=== PATIENT | female | born 1965 | race Caucasian/White ===

== ENCOUNTER 2025-08-10 09:58 | Emergency (ER) | payer OTHER, SELFPAY ==
[2025-08-04 14:04] VITALS: BMI 22.2
[2025-08-10 10:20] VITALS: BP 100/73; PULSE 89; RESP 16; TEMP 36.3; O2SAT 97; BMI 23.7
--- NOTE | 2025-08-10 11:14 | EKG_ITS ---
[place] [id number] [place] [id number] Test Date: 2025-08-10 Pat Name: Lilli Edmonds Department: [facility] Room: Gender: Female Icd 9 Coder: YOLANDA : 1965 Requested By: Order Number: [id number] Reading MD: Carl Bartholomew Measurements Intervals [place] Rate: 77 P: 65 HI: 162 QRS: 35 QRSD: 74 T: 120 QT: 402 QTc: 454 Interpretive Statements Normal sinus rhythm Low voltage QRS Cannot rule out Anterior infarct , age undetermined Electronically Signed On 08-10-2025 18:47:20 PDT by Carl Bartholomew
[2025-08-10 11:34] LABS: Add Manual Diff / Slide Review NO; Hematocrit 45.8 % (36-46); Hemoglobin 15.6 g/dL (12.0-16.0); Lymphocytes Absolute Auto 2200 /uL (1100-4500); Mean Corpuscular HGB Conc 33.9 % (30-36); Mean Corpuscular Hemoglobin 33.3 PG (26-34); Mean Corpuscular Volume 98.0 fL (80-100); Platelet Count 373 X10^3/uL (150-400)
[2025-08-10 11:46] LABS: Alanine Aminotransferase 29 IU/L (<35); Albumin 2.5 g/dL (3.5-5.0); Albumin Globulin Ratio 0.8 (1.0-2.8); Alkaline Phosphatase 466 U/L (38-126); Blood Urea Nitrogen 18 mg/dL (7-17); Calcium 8.6 mg/dL (8.4-10.2); Carbon Dioxide 26 mmol/L (22-32); Chloride 108 mmol/L (98-107); Estimated Glomerular Filt Rate > 60 mL/min (>60); Globulin 3.1 g/dL (1.7-4.1); Glucose 104 mg/dL (70-99); HEMOLYSIS < 15 (0-50); Lipase 64 U/L (23-300); Potassium 3.4 mmol/L (3.4-5.1); Sodium 134 mmol/L (137-145); Total Protein 5.6 g/dL (6.3-8.2)
--- NOTE | 2025-08-10 13:55 | DI.US.S_ITS ---
PROCEDURE: US PARACENTESIS INDICATIONS: ascites TECHNIQUE: The indications, alternatives, benefits, risks, and complications of the procedure were explained to the patient. Written informed consent was obtained and placed in the chart. The abdomen and pelvis were examined sonographically, and an appropriate site was chosen for paracentesis. The skin was prepared and draped in the usual sterile fashion, and 1% lidocaine was infiltrated from the skin down through the peritoneal surface. A 19-gauge catheter-covered needle was then introduced into the peritoneal space, the catheter was advanced and the needle was withdrawn, and thereafter peritoneal fluid was withdrawn. The catheter was then removed and a dressing was applied. The fluid was discarded if the clinician did not order diagnostic testing of the fluid. COMPARISON: [facility], PARACENTESIS, 08/06/2025, 9:55. FINDINGS: Access site: Right lower quadrant Needle: One-Step centesis catheter with introducer needle. Fluid volume and description: 2 liters of chylous fluid. Fluid sent for diagnostic testing: None. Medications: 1% lidocaine for local anaesthesia. Complications: None. IMPRESSION: Successful ultrasound-guided paracentesis. Dictated by: Sunny King M.D. on 08/10/2025 at 17:03 Approved by: Sunny King M.D. on 08/10/2025 at 17:05
--- NOTE | 2025-08-10 13:56 | ED_ITS ---
HPI - Abdominal Pain <Joe Hale MD - Last Filed: 08/27/25 08:01> General Chief Complaint: Abdominal Pain Stated Complaint: needs fluid drain Time Seen by Provider: 08/10/25 13:42 History of Present Illness HPI narrative: This is a 59-year-old female recently hospitalized with the ascites of uncertain etiology, there was concern for malignancy with this apparently is not the case she is not known to have any liver disease. I reviewed the August [address] Costa. She was seen by him in the office today. She is reporting recurrent abdominal fluid which is uncomfortable and she is hoping to have a paracentesis. I note from the discharge summary that she had a 1600 cc paracentesis on the 06 of August. Patient is on acetazolamide to limit recurrence of abdominal ascites, this is a dose was adjusted upward by her primary care provider today. He is not having fevers nausea or vomiting. Related Data Home Medications ?Medication ?Instructions ?Recorded ?Confirmed paroxetine HCl 30 mg tablet 30 mg PO DAILY 08/04/25 trazodone 50 mg tablet 50 mg PO ONCE PM 08/04/25 Allergies Allergy/AdvReac Type Severity Reaction Status Date / Time Sulfa (Sulfonamide Allergy Severe Swelling Verified 08/04/25 10:55 Antibiotics) of Lip/Tongue/Throat Patient History <Joe Hale MD - Last Filed: 08/27/25 08:01> Social History household members: spouse alcohol intake: never Exam <Joe Hale MD - Last Filed: 08/27/25 08:01> Narrative Exam Narrative: Alert and in no distress. Vital signs are reviewed and unremarkable. Bowel sounds are normal abdomen is soft and nontender she does have palpable ascites. Initial Vital Signs Initial Vital Signs: Vital Signs Temperature 97.3 F L 08/10/25 10:20 Pulse Rate 89 08/10/25 10:20 Respiratory Rate 16 08/10/25 10:20 Blood Pressure 100/73 08/10/25 10:20 Pulse Oximetry 97 08/10/25 10:20 Oxygen Delivery Method Room Air 08/10/25 10:20 <Mary Rodríguez DO - Last Filed: 08/10/25 20:51> Initial Vital Signs Initial Vital Signs: Vital Signs Temperature 97.3 F L 08/10/25 10:20 Pulse Rate 89 08/10/25 10:20 Respiratory Rate 16 08/10/25 10:20 Blood Pressure 100/73 08/10/25 10:20 Pulse Oximetry 97 08/10/25 10:20 Oxygen Delivery Method Room Air 08/10/25 10:20 Course <Joe Hale MD - Last Filed: 08/27/25 08:01> Orders Ordered: Discontinued Medications Ondansetron HCl (Ondansetron 4 Mg/2 Ml Inj) 4 mg IV NOW PRN PRN Reason: Nausea And Vomiting Ondansetron HCl (Ondansetron 4 Mg Odt) 4 mg PO NOW PRN PRN Reason: Nausea And Vomiting Vital Signs Vital signs: Vital Signs - 8 hr 08/10/25 14:14 08/10/25 16:42 08/10/25 16:45 Temperature 98.0 F 98.6 F 98.6 F Pulse Rate 72 82 82 Respiratory Rate 22 16 16 Blood Pressure 103/68 110/68 110/68 Pulse Oximetry 97 99 Oxygen Delivery Method Room Air Room Air <Mary Rodríguez DO - Last Filed: 08/10/25 20:51> Orders Ordered: Discontinued Medications Ondansetron HCl (Ondansetron 4 Mg/2 Ml Inj) 4 mg IV NOW PRN PRN Reason: Nausea And Vomiting Ondansetron HCl (Ondansetron 4 Mg Odt) 4 mg PO NOW PRN PRN Reason: Nausea And Vomiting Vital Signs Vital signs: Vital Signs - 8 hr 08/10/25 14:14 08/10/25 16:42 08/10/25 16:45 Temperature 98.0 F 98.6 F 98.6 F Pulse Rate 72 82 82 Respiratory Rate 22 16 16 Blood Pressure 103/68 110/68 110/68 Pulse Oximetry 97 99 Oxygen Delivery Method Room Air Room Air MDM - Abdominal Pain <Joe Hale MD - Last Filed: 08/27/25 08:01> Lab Data 08/10/25 11:20 08/10/25 11:20 Labs: Lab Results 08/10/25 Range/Units 11:20 WBC 17.3 H (4.5-11.0) X10^3/uL RBC 4.68 (4.0-5.2) X10^6/uL Hgb 15.6 (12.0-16.0) g/dL Hct 45.8 (36-46) % MCV 98.0 (80-100) fL MCH 33.3 (26-34) PG MCHC 33.9 (30-36) % RDW 13.9 (11.6-14.8) % Plt Count 373 (150-400) X10^3/uL Neut % (Auto) 82.8 H (50-75) % Lymph % (Auto) 12.7 L (25-40) % [place] % (Auto) 3.5 (3-14) % Eos % (Auto) 0.4 L (2-4) % Baso % (Auto) 0.6 (0-2) % Neut # (Auto) 55358 H (0226-1560) /uL Lymph # (Auto) 2200 (1456-4733) /uL [place] # (Auto) 600 (0-900) /uL Eos # (Auto) 100 (0-450) /uL Baso # (Auto) 100 (0-100) /uL PT 12.4 (9.4-12.5) SECONDS INR 1.1 (0.9-1.3) Sodium 134 L (137-145) mmol/L Potassium 3.4 (3.4-5.1) mmol/L Chloride 108 H (98-107) mmol/L Carbon Dioxide 26 (22-32) mmol/L BUN 18 H (7-17) mg/dL Creatinine 0.85 (0.52-1.04) mg/dL Estimated GFR > 60 (>60) mL/min BUN/Creatinine Ratio 21.2 (6-22) Glucose 104 H (70-99) mg/dL Calcium 8.6 (8.4-10.2) mg/dL Total Bilirubin 0.3 (0.2-1.3) mg/dL AST 56 H (14-36) IU/L ALT 29 (<35) IU/L Alkaline Phosphatase 466 H (38-126) U/L Total Protein 5.6 L (6.3-8.2) g/dL Albumin 2.5 L (3.5-5.0) g/dL Globulin 3.1 (1.7-4.1) g/dL Albumin/Globulin Ratio 0.8 L (1.0-2.8) Lipase 64 (23-300) U/L <Mary Rodríguez, DO - Last Filed: 08/10/25 20:51> Lab Data Labs: Lab Results 08/10/25 Range/Units 11:20 WBC 17.3 H (4.5-11.0) X10^3/uL RBC 4.68 (4.0-5.2) X10^6/uL Hgb 15.6 (12.0-16.0) g/dL Hct 45.8 (36-46) % MCV 98.0 (80-100) fL MCH 33.3 (26-34) PG MCHC 33.9 (30-36) % RDW 13.9 (11.6-14.8) % Plt Count 373 (150-400) X10^3/uL Neut % (Auto) 82.8 H (50-75) % Lymph % (Auto) 12.7 L (25-40) % [place] % (Auto) 3.5 (3-14) % Eos % (Auto) 0.4 L (2-4) % Baso % (Auto) 0.6 (0-2) % Neut # (Auto) 53423 H (3357-7489) /uL Lymph # (Auto) 2200 (9222-5478) /uL [place] # (Auto) 600 (0-900) /uL Eos # (Auto) 100 (0-450) /uL Baso # (Auto) 100 (0-100) /uL PT 12.4 (9.4-12.5) SECONDS INR 1.1 (0.9-1.3) Sodium 134 L (137-145) mmol/L Potassium 3.4 (3.4-5.1) mmol/L Chloride 108 H (98-107) mmol/L Carbon Dioxide 26 (22-32) mmol/L BUN 18 H (7-17) mg/dL Creatinine 0.85 (0.52-1.04) mg/dL Estimated GFR > 60 (>60) mL/min BUN/Creatinine Ratio 21.2 (6-22) Glucose 104 H (70-99) mg/dL Calcium 8.6 (8.4-10.2) mg/dL Total Bilirubin 0.3 (0.2-1.3) mg/dL AST 56 H (14-36) IU/L ALT 29 (<35) IU/L Alkaline Phosphatase 466 H (38-126) U/L Total Protein 5.6 L (6.3-8.2) g/dL Albumin 2.5 L (3.5-5.0) g/dL Globulin 3.1 (1.7-4.1) g/dL Albumin/Globulin Ratio 0.8 L (1.0-2.8) Lipase 64 (23-300) U/L MDM Narrative Medical decision making narrative: 1500 Dr. Rodríguez I received sign-out from Dr. Hale I have seen evaluated patient myself. Patient had post paracentesis just over 2 L removed. Abdomen is soft nontender she feels better vitals are stable. Catheter removed. Recently had a diagnostic paracentesis no need for fluid studies today. Blood work reviewed she does have leukocytosis of 17 no significant anemia platelets are 373, electrolytes within normal limits creatinine 0.85 glucose 104. Patient feels much better. Follow up outpatient Discharge Plan Departure Patient Disposition: Home Clinical Impression: Abdominal ascites Qualifiers: Ascites type: other type Qualified Code(s): R18.8 - Other ascites Instructions: Ascites Activity Restrictions/Additional Instructions: *You have been diagnosed with ascites *What to do: Please follow-up with your providers in regards to ongoing ascites *Continue to take medications as directed *Follow up with your primary care provider in 2-3 days or call [phone] *Return to ER if you should have increasing leakage abdominal pain fever or any new, worsening or concerning symptoms Prescriptions: No Action trazodone 50 mg tablet 50 mg PO ONCE PM paroxetine HCl 30 mg tablet 30 mg PO DAILY Referrals: Ab Costa MD [Primary Care Provider, [facility]] Stand Alone Forms: Patient Portal/API
[2025-08-10 14:14] VITALS: BP 103/68; PULSE 72; RESP 22; TEMP 36.7; O2SAT 97
[2025-08-10 14:23] LABS: INR 1.1 (0.9-1.3); Prothrombin Time 12.4 SECONDS (9.4-12.5)
[2025-08-10 16:42] VITALS: BP 110/68; PULSE 82; RESP 16; TEMP 37; O2SAT 99
[2025-08-10 16:45] VITALS: BP 110/68; PULSE 82; RESP 16; TEMP 37
--- NOTE | 2025-08-10 16:54 | PC.NURSE ---
1630- Pt dropped off in fast track by Radiology after paracentesis that drained 2250 ml clear yellow fluid
== END 2025-08-10 16:46 | disposition home or self-care (01) ==
PROVIDERS: Emergency Medicine; Emergency Provider Emergency Medicine; PCP Family Medicine
DX: R18.8 Other ascites (principal)
CPT/HCPCS: 49083; 80053; 83690; 85025; 85610; 93005; 99281; 99284

== ENCOUNTER 2025-08-29 06:52 | Outpatient (CLI) | payer OTHER, SELFPAY ==
[2025-08-04 14:04] VITALS: BMI 22.2
--- NOTE | 2025-08-29 06:54 | DI.MRI.S_ITS ---
PROCEDURE: MR PELIS WO/W CON INDICATIONS: ASCITES TECHNIQUE: Coronal HASTE, sagittal T2 FSE, axial T1 FSE, axial and coronal nonbreath-hold T2 FSE. Axial dynamic VIBE during administration of contrast. Post-contrast axial and coronal VIBE/2-D FLASH with fat saturation from the iliac crests to the symphysis. Optional diffusion weighted imaging and ADC may be performed. COMPARISON: [facility], MR, MR ABDOMEN WO/W CON, 08/28/2025, 7:25. [facility], CT, CT ABDOMEN PELVIS W CON, 08/04/2025, 11:22. FINDINGS: Image quality: Excellent. Bowel and peritoneum: Large volume ascites. Inferior colon and small bowel loops are normal in caliber. Colonic diverticulosis without evidence of diverticulitis. Genitourinary system: Bladder wall is normal in thickness. Distal ureters are non distended. There are 2 right ovarian cystic lesions. The 1st lesion measures 1.9 x 1.1 centimeter and contains a thin internal septation (series 5, image 9); O-rads 3. The 2nd lesion measures 0.9 centimeters without internal septation (series 5, image 7); O-rads 2. Nodes and vessels: No pathologic pelvic or inguinal adenopathy by size criteria. Iliac vessels are normal in caliber. Soft tissues: No inguinal hernias. Anasarca. Bones: Marrow is normal in overall signal. IMPRESSION: Large volume ascites and anasarca, likely indicating third-spacing of fluids. O-RADS 2 and O-RADS 3 right ovarian cystic lesions, low risk for malignancy. Dictated by: Fly Plascencia M.D. on 08/29/2025 at 10:13 Approved by: Fly Plascencia M.D. on 08/29/2025 at 10:25
[2025-08-29 13:28] VITALS: BP 103/58; PULSE 70; RESP 18; TEMP 36.6; O2SAT 96
== END 2025-08-29 14:21 | disposition home or self-care (01) ==
LOC: MRI 06:53
PROVIDERS: PCP Family Medicine; Referring Provider Family Medicine; Visit Provider Family Medicine
DX: R18.8 Other ascites (principal); R97.1 Elevated cancer antigen 125 [CA 125]; K57.90 Diverticulosis of intestine, part unspecified, without perforation or abscess without bleeding; N83.201 Unspecified ovarian cyst, right side; R60.1 Generalized edema
CPT/HCPCS: 72197; A9579

== ENCOUNTER → 2025-08-29 12:19 | Outpatient (CLI) | payer OTHER, SELFPAY ==
[2025-08-04 14:04] VITALS: BMI 22.2
--- NOTE | 2025-08-29 12:20 | DI.US.S_ITS ---
PROCEDURE: ULTRASOUND PARA THERAPUTIC INDICATIONS: Ascites TECHNIQUE: The indications, alternatives, benefits, risks, and complications of the procedure were explained to the patient. Written informed consent was obtained and placed in the chart. The abdomen and pelvis were examined sonographically, and an appropriate site was chosen for paracentesis. The skin was prepared and draped in the usual sterile fashion, and 1% lidocaine was infiltrated from the skin down through the peritoneal surface. A 19-gauge catheter-covered needle was then introduced into the peritoneal space, the catheter was advanced and the needle was withdrawn, and thereafter peritoneal fluid was withdrawn. The catheter was then removed and a dressing was applied. The fluid was discarded if the clinician did not order diagnostic testing of the fluid. COMPARISON: [facility], , ULTRASOUND PARA THERAPUTIC, 08/20/2025, 8:58. FINDINGS: Access site: Left lower quadrant Needle: One-Step centesis catheter with introducer needle. Fluid volume and description: 950 mL of milky white ascites Fluid sent for diagnostic testing: Specimen sent for testing (culture, total protein) per referring clinician's orders. Medications: 1% lidocaine for local anaesthesia. Complications: None. IMPRESSION: Successful ultrasound-guided paracentesis. Dictated by: Shan Manjarrez M.D. on 08/29/2025 at 18:31 Approved by: Shan Manjarrez M.D. on 08/29/2025 at 18:32
[2025-08-30 19:07] LABS: Labcorp Total Prot, Body Fluid 0.4 g/dL (.)
== END ==
LOC: US 12:19
PROVIDERS: PCP Family Medicine; Visit Provider Family Medicine
DX: R18.8 Other ascites (principal); R97.1 Elevated cancer antigen 125 [CA 125]; K57.00 Diverticulitis of small intestine with perforation and abscess without bleeding; N83.201 Unspecified ovarian cyst, right side; R60.1 Generalized edema
CPT/HCPCS: 49083; 72197; 84157; 87070; 87075; 87205; A9579

== ENCOUNTER 2025-09-05 11:51 | Outpatient (CLI) | payer OTHER, SELFPAY ==
[2025-08-04 14:04] VITALS: BMI 22.2
--- NOTE | 2025-09-05 11:53 | DI.US.S_ITS ---
PROCEDURE: ULTRASOUND PARA THERAPUTIC
[2025-09-05 12:45] VITALS: BP 93/51; PULSE 80; RESP 16; O2SAT 99
[2025-09-05 12:52] VITALS: BP 112/63; PULSE 80; RESP 17; O2SAT 96
[2025-09-05 14:00] VITALS: BP 106/61; PULSE 80; RESP 17; O2SAT 99
== END 2025-09-05 14:12 | disposition home or self-care (01) ==
LOC: US 11:52
PROVIDERS: PCP Family Medicine; Visit Provider Radiology Diagnostic Radiology
DX: R18.8 Other ascites (principal); R97.1 Elevated cancer antigen 125 [CA 125]
CPT/HCPCS: 49083

== ENCOUNTER 2025-09-08 05:45 | Emergency (ER) | payer OTHER, SELFPAY ==
[2025-08-04 14:04] VITALS: BMI 22.2
[2025-09-08] VITALS (10 sets, daily range): BP systolic 94–109; BP diastolic 56–69; PULSE 74–84; RESP 16–21; TEMP 36.5; O2SAT 92–100; BMI 24.3
--- NOTE | 2025-09-08 05:47 | ED_ITS ---
HPI - SOB/Dyspnea
--- NOTE | 2025-09-08 05:47 | ED.SOB ---
HPI - SOB/Dyspnea <Jesus Mata DO - Last Filed: 09/08/25 22:47> General Chief Complaint: Abdominal Pain Stated Complaint: Needs paracentesis, difficulty breathing Time Seen by Provider: 09/08/25 05:46 History of Present Illness HPI Narrative: Patient is a 59-year-old female history of ascites of uncertain etiology, she states that she normally gets paracentesis weekly, states that she had 1 done a few days ago had close to 4 L drained however she states that she is having her typical distention she states that this is causing difficulty breathing secondary to the distention she is not actually having chest pain. She states that he is in the process of seeing a auto transport driver to determine why she is having this abdominal ascites and is presenting to have paracentesis done to help with her symptoms. Related Data Home Medications ?Medication ?Instructions ?Recorded ?Confirmed paroxetine HCl 30 mg tablet 30 mg PO DAILY 08/04/25 09/05/25 trazodone 50 mg tablet 50 mg PO ONCE PM 08/04/25 09/05/25 acetazolamide 125 mg tablet 125 mg PO BID 09/05/25 09/05/25 furosemide 40 mg tablet (Lasix) 40 mg PO DAILY 09/05/25 09/05/25 Allergies Allergy/AdvReac Type Severity Reaction Status Date / Time Sulfa (Sulfonamide Allergy Severe Swelling Verified 09/06/25 08:25 Antibiotics) of Lip/Tongue/Throat SULFA Allergy Severe TONGUE AND Uncoded 09/06/25 08:25 THROAT SWELLING Review of Systems <Jesus Mata DO - Last Filed: 09/08/25 22:47> Review of Systems Narrative: General: Denies fever, chills, weight loss HEENT: Denies headache, eye drainage, eye irritation, head trauma, sore throat, voice change Cardiovascular: Denies any chest pain, palpitations, tachycardia Respiratory: Positive shortness of breath, denies cough, wheeze, stridor GI/: Positive abdominal pain, distention, denies nausea, vomiting, diarrhea, bright red blood per rectum, melanotic stools, urinary frequency, urinary retention, dysuria, hematuria MSK: Denies any joint pain, muscle pains, swelling Skin: Denies any rashes, lesions, discoloration Neuro: Denies any headache, lightheadedness, dizziness, fainting, weakness Psych: Denies SI/HI Patient History <Jesus Mata DO - Last Filed: 09/08/25 22:47> Social History (System 09/06/25 @ 08:25 by Marisela Fam) household members: spouse Smoking Status: Current some day smoker alcohol intake: never Exam <Jesus Mata DO - Last Filed: 09/08/25 22:47> Narrative Exam Narrative: General: Cooperative, well-developed, not in acute distress HEENT: Normocephalic, atraumatic, PERRLA, normal sclera, eyelids normal Neck: Active full range of motion, atraumatic Chest: Normal to inspection, negative crepitus, no overlying erythema ecchymosis Respiratory: Normal respiratory effort, not in acute respiratory distress, clear to auscultation bilaterally negative cough, wheeze, tachypnea, rhonchi, rales Cardiology: Regular rate rhythm negative gallop, murmur, rubs GI/: Positive fluid wave, positive distention No tenderness to palpation, soft, non rigid, exam deferred MSK: Full active range of motion in all 4 extremities, atraumatic, no tenderness to palpation of any bony prominences Skin: No rashes or lesions noted Neuro: Alert awake oriented x3, moves all 4 extremities spontaneously, cranial nerves intact, able to answer all questions appropriately follows commands appropriately Psych: Cooperative, negative suicidal or homicidal ideations Initial Vital Signs Initial Vital Signs: Vital Signs Temperature 97.7 F 09/08/25 05:51 Pulse Rate 84 09/08/25 05:51 Respiratory Rate 20 09/08/25 05:51 Blood Pressure 97/57 L 09/08/25 05:51 Pulse Oximetry 98 09/08/25 05:51 Oxygen Delivery Method Room Air 09/08/25 05:51 <Neville Gonzalez, DO - Last Filed: 09/08/25 08:13> Initial Vital Signs Initial Vital Signs: Vital Signs Temperature 97.7 F 09/08/25 05:51 Pulse Rate 84 09/08/25 05:51 Respiratory Rate 20 09/08/25 05:51 Blood Pressure 97/57 L 09/08/25 05:51 Pulse Oximetry 98 09/08/25 05:51 Oxygen Delivery Method Room Air 09/08/25 05:51 Procedures <Jesus Mata DO - Last Filed: 09/08/25 22:47> Paracentesis Time of procedure: 06:30 Time Out Performed: Yes Indication: Ascites Procedure: therapeutic paracentesis Local Anesthetic: lidocaine 1% Amount of anesthesia used (mL): 10 Preparation: sterile prep and drape Fluid: cloudy and sent to lab for analysis Post Procedure Exam: awake, alert, normal BP, normal HR and normal SpO2 Patient Tolerated Procedure: Well and No complications Course <Jesus Mata, DO - Last Filed: 09/08/25 22:47> Orders Ordered: ED Orders 09/08/25 05:55 CBC Auto Diff [Complete Blood Count AUTO DIFF] Stat CMP [Comprehensive Metabolic Panel] Stat Lipase Stat MAG [Magnesium] Stat PT [Prothrombin Time INR] Stat PTT Partial Thromboplastin Franky Stat 09/08/25 07:00 Body Fluid Culture Stat Cell Count w Diff Body Fluid Stat 09/08/25 07:50 Ictotest Urine Stat Urinalysis and Microscopic Stat Vital Signs Vital signs: Vital Signs - 8 hr 09/08/25 05:51 09/08/25 05:57 09/08/25 06:00 Temperature 97.7 F Pulse Rate 84 81 Respiratory Rate 20 16 Blood Pressure 97/57 L 100/57 L Pulse Oximetry 98 99 Oxygen Delivery Method Room Air 09/08/25 06:00 09/08/25 06:30 09/08/25 06:30 Temperature Pulse Rate 81 77 Respiratory Rate 21 17 Blood Pressure 100/64 Pulse Oximetry 100 98 Oxygen Delivery Method 09/08/25 06:43 09/08/25 06:43 09/08/25 06:59 Temperature Pulse Rate 79 74 Respiratory Rate 17 21 Blood Pressure 99/62 Pulse Oximetry Oxygen Delivery Method 09/08/25 06:59 09/08/25 07:00 09/08/25 07:00 Temperature Pulse Rate 76 Respiratory Rate 18 Blood Pressure 96/60 94/61 Pulse Oximetry Oxygen Delivery Method 09/08/25 07:30 09/08/25 07:30 Temperature Pulse Rate 75 Respiratory Rate 17 Blood Pressure 109/56 L Pulse Oximetry 95 Oxygen Delivery Method <Neville Gonzalez, DO - Last Filed: 09/08/25 08:13> Orders Ordered: ED Orders 09/08/25 05:55 CBC Auto Diff [Complete Blood Count AUTO DIFF] Stat CMP [Comprehensive Metabolic Panel] Stat Lipase Stat MAG [Magnesium] Stat PT [Prothrombin Time INR] Stat PTT Partial Thromboplastin Franky Stat 09/08/25 07:00 Body Fluid Culture Stat Cell Count w Diff Body Fluid Stat 09/08/25 07:50 Ictotest Urine Stat Urinalysis and Microscopic Stat Vital Signs Vital signs: Vital Signs - 8 hr 09/08/25 05:51 09/08/25 05:57 09/08/25 06:00 Temperature 97.7 F Pulse Rate 84 81 Respiratory Rate 20 16 Blood Pressure 97/57 L 100/57 L Pulse Oximetry 98 99 Oxygen Delivery Method Room Air 09/08/25 06:00 09/08/25 06:30 09/08/25 06:30 Temperature Pulse Rate 81 77 Respiratory Rate 21 17 Blood Pressure 100/64 Pulse Oximetry 100 98 Oxygen Delivery Method 09/08/25 06:43 09/08/25 06:43 09/08/25 06:59 Temperature Pulse Rate 79 74 Respiratory Rate 17 21 Blood Pressure 99/62 Pulse Oximetry Oxygen Delivery Method 09/08/25 06:59 09/08/25 07:00 09/08/25 07:00 Temperature Pulse Rate 76 Respiratory Rate 18 Blood Pressure 96/60 94/61 Pulse Oximetry Oxygen Delivery Method 09/08/25 07:30 09/08/25 07:30 Temperature Pulse Rate 75 Respiratory Rate 17 Blood Pressure 109/56 L Pulse Oximetry 95 Oxygen Delivery Method MDM - SOB/Dyspnea <Jesus Mata, - Last Filed: 09/08/25 22:47> Lab Data 09/08/25 05:55 09/08/25 05:55 Labs: Lab Results 09/08/25 09/08/25 09/08/25 Range/Units 05:55 07:00 07:49 WBC 16.6 H (4.5-11.0) X10^3/uL RBC 3.70 L (4.0-5.2) X10^6/uL Hgb 12.5 (12.0-16.0) g/dL Hct 37.0 (36-46) % MCV 100.2 H (80-100) fL MCH 33.7 (26-34) PG MCHC 33.7 (30-36) % RDW 14.8 (11.6-14.8) % Plt Count 591 H (150-400) X10^3/uL Neut % (Auto) Not Reportable Lymph % (Auto) Not Reportable Millard % (Auto) Not Reportable Eos % (Auto) Not Reportable Baso % (Auto) Not Reportable Lymph # (Auto) Not Reportable Millard # (Auto) Not Reportable Baso # (Auto) Not Reportable Total Counted 100 Seg Neutrophils % 69.0 (38-70) % Band Neutrophils % 2.0 L (3-7) % Lymphocytes % (Manual) 22.0 L (25-45) % Monocytes % (Manual) 5.0 (2-11) % Eosinophils % (Manual) 1.0 L (2-4) % Basophils % (Manual) 1.0 (0-1) % Neutrophils # (Manual) 02918 H (6004-5150) /uL RBC Morphology See below Macrocytosis 1+ H PT 11.6 (9.4-12.5) SECONDS INR 1.0 (0.9-1.3) APTT 32 (25.1-36.5) SECONDS Sodium 135 L (137-145) mmol/L Potassium 3.6 (3.4-5.1) mmol/L Chloride 108 H (98-107) mmol/L Carbon Dioxide 26 (22-32) mmol/L BUN 18 H (7-17) mg/dL Creatinine 0.81 (0.52-1.04) mg/dL Estimated GFR > 60 (>60) mL/min BUN/Creatinine Ratio 22.2 H (6-22) Glucose 98 (70-99) mg/dL Calcium 8.3 L (8.4-10.2) mg/dL Magnesium 2.0 (1.6-2.3) mg/dL Total Bilirubin 0.3 (0.2-1.3) mg/dL AST 84 H (14-36) IU/L ALT 39 H (<35) IU/L Alkaline Phosphatase 1369 H (38-126) U/L Total Protein 6.0 L (6.3-8.2) g/dL Albumin 2.7 L (3.5-5.0) g/dL Globulin 3.3 (1.7-4.1) g/dL Albumin/Globulin Ratio 0.8 L (1.0-2.8) Lipase 73 (23-300) U/L Urine Color Yellow Urine Appearance Clear Urine pH 6.5 (4.5-8.0) Ur Specific [place] 1.025 (1.000-1.035) Urine Protein 3+ H (Negative) Urine Glucose (UA) Negative (Negative) g/dL Urine Ketones Negative (NEGATIVE) Urine Occult Blood Negative (Negative) Urine Nitrate Negative (Negative) Urine Bilirubin Negative (NEGATIVE) Ur Bilirubin Confirm Urine Urobilinogen 0.2 (0.2) E.U./dL Ur Leukocyte Esterase Negative (NEGATIVE) Urine RBC None seen (0-5/HPF) Urine WBC None seen (0-5/HPF) Ur Squamous Epith Cells 1-5 /hpf (0-5/HPF) Ur Transition Epith Cell Ur Renal Epithelial Cell Calcium Oxalate Crystal Uric Acid Crystals Triple Phos Crystals Other Crystals Amorphous Sediment Urine Bacteria None seen (None) Hyaline Casts Granular Casts RBC Casts WBC Casts Other Casts Urine Mucus Urine Trichomonas Urine Yeast Urine Sperm Ur Culture Indicated? Cult not indicated Micro UA Comment Vol Urine Centrifuged 10ml (spun) Fluid Color White Fluid Appearance Cloudy Fluid RBC 583 /uL Fld Tot Nucleated Cell 103 /uL Fluid Neutrophils % Not Reportable Fluid Lymphocytes % Not Reportable Fluid Meso/Macro/Millard % 100 % Body Fluid Clot No clots present 09/08/25 Range/Units 07:50 WBC (4.5-11.0) X10^3/uL RBC (4.0-5.2) X10^6/uL Hgb (12.0-16.0) g/dL Hct (36-46) % MCV (80-100) fL MCH (26-34) PG MCHC (30-36) % RDW (11.6-14.8) % Plt Count (150-400) X10^3/uL Neut % (Auto) Lymph % (Auto) Millard % (Auto) Eos % (Auto) Baso % (Auto) Lymph # (Auto) Millard # (Auto) Baso # (Auto) Total Counted Seg Neutrophils % (38-70) % Band Neutrophils % (3-7) % Lymphocytes % (Manual) (25-45) % Monocytes % (Manual) (2-11) % Eosinophils % (Manual) (2-4) % Basophils % (Manual) (0-1) % Neutrophils # (Manual) (3719-1511) /uL RBC Morphology Macrocytosis PT (9.4-12.5) SECONDS INR (0.9-1.3) APTT (25.1-36.5) SECONDS Sodium (137-145) mmol/L Potassium (3.4-5.1) mmol/L Chloride (98-107) mmol/L Carbon Dioxide (22-32) mmol/L BUN (7-17) mg/dL Creatinine (0.52-1.04) mg/dL Estimated GFR (>60) mL/min BUN/Creatinine Ratio (6-22) Glucose (70-99) mg/dL Calcium (8.4-10.2) mg/dL Magnesium (1.6-2.3) mg/dL Total Bilirubin (0.2-1.3) mg/dL AST (14-36) IU/L ALT (<35) IU/L Alkaline Phosphatase (38-126) U/L Total Protein (6.3-8.2) g/dL Albumin (3.5-5.0) g/dL Globulin (1.7-4.1) g/dL Albumin/Globulin Ratio (1.0-2.8) Lipase (23-300) U/L Urine Color Cancelled Urine Appearance Cancelled Urine pH Cancelled (4.5-8.0) Ur Specific [place] Cancelled (1.000-1.035) Urine Protein Cancelled (Negative) Urine Glucose (UA) Cancelled (Negative) g/dL Urine Ketones Cancelled (NEGATIVE) Urine Occult Blood Cancelled (Negative) Urine Nitrate Cancelled (Negative) Urine Bilirubin Cancelled (NEGATIVE) Ur Bilirubin Confirm Cancelled Urine Urobilinogen Cancelled (0.2) E.U./dL Ur Leukocyte Esterase Cancelled (NEGATIVE) Urine RBC Cancelled (0-5/HPF) Urine WBC Cancelled (0-5/HPF) Ur Squamous Epith Cells Cancelled (0-5/HPF) Ur Transition Epith Cell Cancelled Ur Renal Epithelial Cell Cancelled Calcium Oxalate Crystal Cancelled Uric Acid Crystals Cancelled Triple Phos Crystals Cancelled Other Crystals Cancelled Amorphous Sediment Cancelled Urine Bacteria Cancelled (None) Hyaline Casts Cancelled Granular Casts Cancelled RBC Casts Cancelled WBC Casts Cancelled Other Casts Cancelled Urine Mucus Cancelled Urine Trichomonas Cancelled Urine Yeast Cancelled Urine Sperm Cancelled Ur Culture Indicated? Cancelled Micro UA Comment Cancelled Vol Urine Centrifuged Cancelled Fluid Color Fluid Appearance Fluid RBC /uL Fld Tot Nucleated Cell /uL Fluid Neutrophils % Fluid Lymphocytes % Fluid Meso/Macro/Millard % % Body Fluid Clot MDM Narrative Medical decision making narrative: 59-year-old female history of abdominal ascites secondary to liver issues but states not sure about exact reasons in the process of seeing a auto transport driver, comes into the ED from home for evaluation of abdominal distention causing shortness of breath. She states that she normally gets weekly paracentesis had 1 done a few days ago had a proximally 4 L drained however she states that she had more distention and believes she is unable to wait until her next scheduled paracentesis she denies any other symptoms at this time. Patient did have lab work no anemia, no thrombocytopenia, patient with chronically elevated WBC's however today does appear to be improved from previous on file. Patient does have elevated LFTs consistent with known liver issues. Risk and benefits were performed with patient in regards to paracentesis procedure. Consent was obtained with the patient in regards to performing bedside paracentesis, did discuss that patient could wait to have this performed by her typical team in an out patient setting however she said that she cannot wait and is adamant in having this done today, therefore proceeded wtih bedside paracentesis. Fluid analysis was sent. Patient did have paracentesis ultrasound-guided and had 1.2 L removed here. Patient states she had significant resolution of her symptoms after this was performed. She states that her pain has resolved and so has her difficulty breathing. Patient was signed out to Dr. Gonzalez. Final disposition pending fluid analysis and re-evaluation, patient care signed out to Dr. Gonzalez All lab work, vital signs, nurse triage note, medication list, previous ER visits, and all imaging studies reviewed. Fluid color white fluid appearance cloudy fluid RBC 583 fluid total nucleated cell 103 fluid lymphocyte% not reportable fluid neutrophil % not reportable fluid mesial macro mono % 100. No clots present. Patient feels much better status post paracentesis and follow up with PCP appointment this with auto transport driver appointment pending. <Neville Gonzalez, DO - Last Filed: 09/08/25 08:13> Lab Data Labs: Lab Results 09/08/25 09/08/25 09/08/25 Range/Units 05:55 07:00 07:49 WBC 16.6 H (4.5-11.0) X10^3/uL RBC 3.70 L (4.0-5.2) X10^6/uL Hgb 12.5 (12.0-16.0) g/dL Hct 37.0 (36-46) % MCV 100.2 H (80-100) fL MCH 33.7 (26-34) PG MCHC 33.7 (30-36) % RDW 14.8 (11.6-14.8) % Plt Count 591 H (150-400) X10^3/uL Neut % (Auto) Not Reportable Lymph % (Auto) Not Reportable [place] % (Auto) Not Reportable Eos % (Auto) Not Reportable Baso % (Auto) Not Reportable Lymph # (Auto) Not Reportable [place] # (Auto) Not Reportable Baso # (Auto) Not Reportable Total Counted 100 Seg Neutrophils % 69.0 (38-70) % Band Neutrophils % 2.0 L (3-7) % Lymphocytes % (Manual) 22.0 L (25-45) % Monocytes % (Manual) 5.0 (2-11) % Eosinophils % (Manual) 1.0 L (2-4) % Basophils % (Manual) 1.0 (0-1) % Neutrophils # (Manual) 54299 H (3540-5236) /uL RBC Morphology See below Macrocytosis 1+ H PT 11.6 (9.4-12.5) SECONDS INR 1.0 (0.9-1.3) APTT 32 (25.1-36.5) SECONDS Sodium 135 L (137-145) mmol/L Potassium 3.6 (3.4-5.1) mmol/L Chloride 108 H (98-107) mmol/L Carbon Dioxide 26 (22-32) mmol/L BUN 18 H (7-17) mg/dL Creatinine 0.81 (0.52-1.04) mg/dL Estimated GFR > 60 (>60) mL/min BUN/Creatinine Ratio 22.2 H (6-22) Glucose 98 (70-99) mg/dL Calcium 8.3 L (8.4-10.2) mg/dL Magnesium 2.0 (1.6-2.3) mg/dL Total Bilirubin 0.3 (0.2-1.3) mg/dL AST 84 H (14-36) IU/L ALT 39 H (<35) IU/L Alkaline Phosphatase 1369 H (38-126) U/L Total Protein 6.0 L (6.3-8.2) g/dL Albumin 2.7 L (3.5-5.0) g/dL Globulin 3.3 (1.7-4.1) g/dL Albumin/Globulin Ratio 0.8 L (1.0-2.8) Lipase 73 (23-300) U/L Urine Color Yellow Urine Appearance Clear Urine pH 6.5 (4.5-8.0) Ur Specific [place] 1.025 (1.000-1.035) Urine Protein 3+ H (Negative) Urine Glucose (UA) Negative (Negative) g/dL Urine Ketones Negative (NEGATIVE) Urine Occult Blood Negative (Negative) Urine Nitrate Negative (Negative) Urine Bilirubin Negative (NEGATIVE) Ur Bilirubin Confirm Urine Urobilinogen 0.2 (0.2) E.U./dL Ur Leukocyte Esterase Negative (NEGATIVE) Urine RBC None seen (0-5/HPF) Urine WBC None seen (0-5/HPF) Ur Squamous Epith Cells 1-5 /hpf (0-5/HPF) Ur Transition Epith Cell Ur Renal Epithelial Cell Calcium Oxalate Crystal Uric Acid Crystals Triple Phos Crystals Other Crystals Amorphous Sediment Urine Bacteria None seen (None) Hyaline Casts Granular Casts RBC Casts WBC Casts Other Casts Urine Mucus Urine Trichomonas Urine Yeast Urine Sperm Ur Culture Indicated? Cult not indicated Micro UA Comment Vol Urine Centrifuged 10ml (spun) Fluid Color White Fluid Appearance Cloudy Fluid RBC 583 /uL Fld Tot Nucleated Cell 103 /uL Fluid Neutrophils % Not Reportable Fluid Lymphocytes % Not Reportable Fluid Meso/Macro/Millard % 100 % Body Fluid Clot No clots present 09/08/25 Range/Units 07:50 WBC (4.5-11.0) X10^3/uL RBC (4.0-5.2) X10^6/uL Hgb (12.0-16.0) g/dL Hct (36-46) % MCV (80-100) fL MCH (26-34) PG MCHC (30-36) % RDW (11.6-14.8) % Plt Count (150-400) X10^3/uL Neut % (Auto) Lymph % (Auto) [place] % (Auto) Eos % (Auto) Baso % (Auto) Lymph # (Auto) [place] # (Auto) Baso # (Auto) Total Counted Seg Neutrophils % (38-70) % Band Neutrophils % (3-7) % Lymphocytes % (Manual) (25-45) % Monocytes % (Manual) (2-11) % Eosinophils % (Manual) (2-4) % Basophils % (Manual) (0-1) % Neutrophils # (Manual) (3017-2607) /uL RBC Morphology Macrocytosis PT (9.4-12.5) SECONDS INR (0.9-1.3) APTT (25.1-36.5) SECONDS Sodium (137-145) mmol/L Potassium (3.4-5.1) mmol/L Chloride (98-107) mmol/L Carbon Dioxide (22-32) mmol/L BUN (7-17) mg/dL Creatinine (0.52-1.04) mg/dL Estimated GFR (>60) mL/min BUN/Creatinine Ratio (6-22) Glucose (70-99) mg/dL Calcium (8.4-10.2) mg/dL Magnesium (1.6-2.3) mg/dL Total Bilirubin (0.2-1.3) mg/dL AST (14-36) IU/L ALT (<35) IU/L Alkaline Phosphatase (38-126) U/L Total Protein (6.3-8.2) g/dL Albumin (3.5-5.0) g/dL Globulin (1.7-4.1) g/dL Albumin/Globulin Ratio (1.0-2.8) Lipase (23-300) U/L Urine Color Cancelled Urine Appearance Cancelled Urine pH Cancelled (4.5-8.0) Ur Specific [place] Cancelled (1.000-1.035) Urine Protein Cancelled (Negative) Urine Glucose (UA) Cancelled (Negative) g/dL Urine Ketones Cancelled (NEGATIVE) Urine Occult Blood Cancelled (Negative) Urine Nitrate Cancelled (Negative) Urine Bilirubin Cancelled (NEGATIVE) Ur Bilirubin Confirm Cancelled Urine Urobilinogen Cancelled (0.2) E.U./dL Ur Leukocyte Esterase Cancelled (NEGATIVE) Urine RBC Cancelled (0-5/HPF) Urine WBC Cancelled (0-5/HPF) Ur Squamous Epith Cells Cancelled (0-5/HPF) Ur Transition Epith Cell Cancelled Ur Renal Epithelial Cell Cancelled Calcium Oxalate Crystal Cancelled Uric Acid Crystals Cancelled Triple Phos Crystals Cancelled Other Crystals Cancelled Amorphous Sediment Cancelled Urine Bacteria Cancelled (None) Hyaline Casts Cancelled Granular Casts Cancelled RBC Casts Cancelled WBC Casts Cancelled Other Casts Cancelled Urine Mucus Cancelled Urine Trichomonas Cancelled Urine Yeast Cancelled Urine Sperm Cancelled Ur Culture Indicated? Cancelled Micro UA Comment Cancelled Vol Urine Centrifuged Cancelled Fluid Color Fluid Appearance Fluid RBC /uL Fld Tot Nucleated Cell /uL Fluid Neutrophils % Fluid Lymphocytes % Fluid Meso/Macro/Millard % % Body Fluid Clot MDM Narrative Medical decision making narrative: 59-year-old female history of abdominal ascites secondary to liver issues but states not sure about exact reasons in the process of seeing a auto transport driver, comes into the ED from home for evaluation of abdominal distention causing shortness of breath. She states that she normally gets weekly paracentesis had 1 done a few days ago had a proximally 4 L drained however she states that she had more distention and believes she is unable to wait until her next scheduled paracentesis she denies any other symptoms at this time. Patient did have lab work no anemia, no thrombocytopenia. Patient does have elevated LFTs consistent with known liver issues. Fluid analysis was sent. Patient did have paracentesis ultrasound-guided and had 1.2 L removed here. Patient states she had significant resolution of her symptoms. Final disposition pending fluid analysis and re-evaluation, patient care signed out to Dr. Gonzalez All lab work, vital signs, nurse triage note, medication list, previous ER visits, and all imaging studies reviewed. Fluid color white fluid appearance cloudy fluid RBC 583 fluid total nucleated cell 103 fluid lymphocyte% not reportable fluid neutrophil % not reportable fluid mesial macro mono % 100. No clots present. Patient feels much better status post paracentesis and follow up with PCP appointment this with auto transport driver appointment pending. Discharge Plan Departure Patient Disposition: Home Clinical Impression: Abdominal ascites Instructions: DI for Abdominal Paracentesis Activity Restrictions/Additional Instructions: Return with new or worsening symptoms. Follow up with PCP this coming appointment with auto transport driver appointment also pending. Prescriptions: No Action furosemide [Lasix] 40 mg tablet 40 mg PO DAILY acetazolamide 125 mg tablet 125 mg PO BID trazodone 50 mg tablet 50 mg PO ONCE PM paroxetine HCl 30 mg tablet 30 mg PO DAILY Referrals: Ab Costa MD [Primary Care Provider, Family Practice] Stand Alone Forms: Patient Portal/API
[2025-09-08 06:11] LABS: Hematocrit 37.0 % (36-46); Hemoglobin 12.5 g/dL (12.0-16.0); Mean Corpuscular HGB Conc 33.7 % (30-36); Mean Corpuscular Hemoglobin 33.7 PG (26-34); Mean Corpuscular Volume 100.2 fL (80-100); Platelet Count 591 X10^3/uL (150-400)
[2025-09-08 06:12] LABS: Add Manual Diff / Slide Review YES
[2025-09-08 06:14] LABS: INR 1.0 (0.9-1.3); Prothrombin Time 11.6 SECONDS (9.4-12.5)
[2025-09-08 06:17] LABS: Alanine Aminotransferase 39 IU/L (<35); Albumin 2.7 g/dL (3.5-5.0); Albumin Globulin Ratio 0.8 (1.0-2.8); Alkaline Phosphatase 1369 U/L (38-126); Blood Urea Nitrogen 18 mg/dL (7-17); Calcium 8.3 mg/dL (8.4-10.2); Carbon Dioxide 26 mmol/L (22-32); Chloride 108 mmol/L (98-107); Estimated Glomerular Filt Rate > 60 mL/min (>60); Globulin 3.3 g/dL (1.7-4.1); Glucose 98 mg/dL (70-99); HEMOLYSIS < 15 (0-50); Lipase 73 U/L (23-300); Magnesium 2.0 mg/dL (1.6-2.3); PTT Partial Thromboplastin Tim 32 SECONDS (25.1-36.5); Potassium 3.6 mmol/L (3.4-5.1); Sodium 135 mmol/L (137-145); Total Protein 6.0 g/dL (6.3-8.2)
[2025-09-08 06:36] LABS: Band Neutrophils Percent 2.0 % (3-7); Basophils Percent Manual 1.0 % (0-1); Eosinophils Percent Manual 1.0 % (2-4); Lymphocytes Percent Manual 22.0 % (25-45); Monocytes Percent Manual 5.0 % (2-11); Neutrophils Absolute Manual 11786 /uL (3000-5900); Segmented Neutrophils Percent 69.0 % (38-70); Total Cells Counted 100
[2025-09-08 06:37] LABS: Macrocytosis 1+
[2025-09-08 07:27] LABS: Body Fluid Tot Nucleated Cells 103 /uL
[2025-09-08 07:31] LABS: Body Fluid Clotted? NO CLOTS PRESENT
[2025-09-08 07:42] LABS: MESO/MACRO/MONO Body Fluid 100 %
--- NOTE | 2025-09-08 07:52 | PC.NURSE ---
This RNs first interaction with patient.
[2025-09-08 08:42] LABS: Appearance Urine UA CLEAR; Bilirubin Urine UA NEGATIVE (NEGATIVE); Color Urine UA YELLOW; Glucose Urine UA NEGATIVE (Negative); Ketones Urine UA NEGATIVE (NEGATIVE); Leukocyte Esterase Urine UA NEGATIVE (NEGATIVE); Nitrite Urine UA NEGATIVE (Negative); Occult Blood Urine UA NEGATIVE (Negative); Protein Urine UA 3+ (Negative); Specific Gravity Urine UA 1.025 (1.000-1.035); Urobilinogen Urine UA 0.2 E.U./dL (0.2)
[2025-09-08 08:43] LABS: pH Urine UA 6.5 (4.5-8.0)
[2025-09-08 08:49] LABS: Culture Indicated Urine Cult Not Indicated
== END 2025-09-08 08:26 | disposition home or self-care (01) ==
PROVIDERS: Student in an Organized Health Care Education/Training Program; Emergency Provider Family Medicine; PCP Family Medicine
DX: R18.8 Other ascites (principal); R06.00 Dyspnea, unspecified; R07.9 Chest pain, unspecified
CPT/HCPCS: 36415; 49082; 80053; 81001; 83690; 83735; 85007; 85025; 85610; 85730; 87070; 87075; 87205; 89051; 99283; 99284

== ENCOUNTER 2025-09-14 07:31 | Outpatient (CLI) | payer OTHER, SELFPAY ==
[2025-08-04 14:04] VITALS: BMI 22.2
--- NOTE | 2025-09-14 07:33 | DI.US.S_ITS ---
PROCEDURE: ULTRASOUND PARA THERAPUTIC INDICATIONS: Ascites TECHNIQUE: The indications, alternatives, benefits, risks, and complications of the procedure were explained to the patient. Written informed consent was obtained and placed in the chart. The abdomen and pelvis were examined sonographically, and an appropriate site was chosen for paracentesis. The skin was prepared and draped in the usual sterile fashion, and 1% lidocaine was infiltrated from the skin down through the peritoneal surface. A 19-gauge catheter-covered needle was then introduced into the peritoneal space, the catheter was advanced and the needle was withdrawn, and thereafter peritoneal fluid was withdrawn. The catheter was then removed and a dressing was applied. The fluid was discarded if the clinician did not order diagnostic testing of the fluid. COMPARISON: [facility], , ULTRASOUND PARA THERAPUTIC, 09/05/2025, 13:09. FINDINGS: Access site: Right lower anterior abdominal wall Needle: One-Step centesis catheter with introducer needle. Fluid volume and description: 2700 cc milky chylous fluid Fluid sent for diagnostic testing: No Medications: 1% lidocaine for local anaesthesia. Complications: None. IMPRESSION: Successful ultrasound-guided paracentesis. Dictated by: Christopher Baker M.D. on 09/14/2025 at 12:11 Approved by: Christopher Baker M.D. on 09/14/2025 at 12:12
[2025-09-14 08:30] VITALS: BP 101/67; PULSE 80; RESP 17; O2SAT 95
[2025-09-14 09:00] VITALS: BP 95/55; PULSE 66; RESP 16; O2SAT 96
[2025-09-14 09:15] VITALS: BP 90/55; PULSE 79; RESP 16; O2SAT 96
[2025-09-14 09:50] VITALS: BP 86/54; PULSE 80; RESP 16; O2SAT 96
== END 2025-09-14 09:53 | disposition home or self-care (01) ==
LOC: US 07:32
PROVIDERS: PCP Family Medicine; Referring Provider Family Medicine; Visit Provider Family Medicine
DX: R18.8 Other ascites (principal); R97.1 Elevated cancer antigen 125 [CA 125]
CPT/HCPCS: 49083

== ENCOUNTER 2025-09-19 10:00 | Outpatient (CLI) | payer OTHER, SELFPAY ==
[2025-08-04 14:04] VITALS: BMI 22.2
--- NOTE | 2025-09-19 10:02 | DI.US.S_ITS ---
PROCEDURE: US ABDOMEN LIMITED INDICATIONS: ASCITES TECHNIQUE: Real-time focused scanning was performed of the abdomen, with image documentation. COMPARISON: None. FINDINGS AND IMPRESSION: Small volume ascites seen. No paracentesis performed. Diffuse abdominal wall edema noted. Dictated by: Arnaldo Woodward M.D. on 09/19/2025 at 15:21 Approved by: Arnaldo Woodward M.D. on 09/19/2025 at 15:22
[2025-09-19 10:15] VITALS: BP 97/70; PULSE 89; RESP 14; TEMP 37; O2SAT 99
[2025-09-19 11:13] VITALS: BP 98/60; PULSE 69; RESP 16; O2SAT 99
--- OUTSIDE RECORDS SUMMARY | 2025-09-21 14:45 | XMS_ITS | Clinical Summary ---
Author Organization [facility] [place] [address] [place] [address] Care Team Providers Care Sales Development Manager Name Role Phone Unavailable Primary Care Provider Unavailabl e Social History Tobacco Use Types Packs/Day Years Used Date Smoking Tobacco: Never Assessed Comments Unknown Sex and Gender Information Value Date Recorded Sex Assigned at Not on file Legal Sex Female 8:29 AM PST Gender Identity Not on file Sexual Orientation Not on file Plan of Treatment Upcoming Encounters Date Type Department Care Team (Late st Contact Info) Description 01/28/2026 3:00 PM PDT Office Visit [facility] Hep[facility] [address] [place] [address] Alondra Welch MD [address], [address] [place] [address] Health Maintenance Due Date Last Done Comments Hepatitis C Screening 1965 Depression Screening (PHQ-2) 1977 HIV Screening 1980 DTaP, Tdap and Td Vaccines (1 - Tdap) 1984 Hepatitis B Vaccine (1 of 3 - 19+ 3-dose series) 1984 Cervical Cancer Screening 1990 HPV Self Collect 1990 HPV 1990 Pap 1990 Lipid Disorders Screening 1995 Breast Cancer Screening 2005 CT Colonography 2010 Colonoscopy 2010 Colorectal Cancer Screening 2010 FIT-DNA 2010 FOBT/FIT 2010 Sigmoidoscopy 2010 Pneumococcal Vaccine: 50+ Years (1 of 1 - PCV) 2015 Zoster Vaccine (1 of 2) 2015 COVID-19 Vaccine ( season) 2025 08/04/2021, 06/28/2021, 02/28/2021, Additional history exists Influenza Vaccine (#1) 2025 RSV Vaccine (1 - 1-dose 75+ series) 2040 HPV Vaccine Aged Out No longer eligi ble based on patient's age to complete this topic Hepatitis A Vaccine Aged Out No longe r eligible based on patient's age to complete this topic Meningococcal B Vaccine Aged Out No l onger eligible based on patient's age to complete this topic Insurance [facility]
--- OUTSIDE RECORDS SUMMARY | 2025-09-21 14:45 | XMS_ITS | Encounter Summary ---
Author Organization [facility] Address [address] [place] [address] Phone [phone] Care Team Providers Care Animal Behaviorist Name Role Phone Ab Costa MD Primary Care Provider [phone] Encounter Details Date Type Department Care Team (Late st Contact Info) Description 09/21/2025 Orders Only [facility] [address] [place] [phone] Ab Costa MD [address] [place] [id number] Social History Tobacco Use Types Packs/Day Years Used Date Smoking Tobacco: Every Day Cigarettes Smokeless Tobacco: Never Alcohol Use Standard Drinks/Week Comments Never 0 (1 standard drink = 0.6 oz pur e alcohol) PHQ-2 Answer Date Recorded Patient Health Questionnaire-2 Score 0 04/20/2024 Comments No Sex and Gender Information Value Date Recorded Sex Assigned at Not on file Legal Sex Female 7:58 AM PDT Gender Identity Not on file Sexual Orientation Not on file documented as of this encounter Progress Notes * Kandy Concepcion - 09/21/2025 10:52 AM PST Recall entered into [facility] for Follow-up visit: BP. documented in this encounter Plan of Treatment Not on file documented as of this encounter Visit Diagnoses Not on filedocumented in this encounter Additional Health Concerns Assessment Noted Time PHQ-9 Depression Total Score: 2 04/20/20 24 10:52 AM PDT documented as of this encounter Care Teams Animal Behaviorist Relationship Specialty Start Date End Date bA Costa MD [address] [place] [phone] PCP - General Family Medicine 02/07/24 documented as of this encounter
--- OUTSIDE RECORDS SUMMARY | 2025-09-21 14:45 | XMS_ITS | Clinical Summary ---
Author Organization [facility] Address [address] [place] [id number] Phone [phone] Care Team Providers Care Blind Teacher Name Role Phone Ab Costa MD Primary Care Provider Allergies Active Allergy Reactions Criticality Noted Date Comments Naproxen 08/09/2025 Other Reaction(s): Unknown Reaction(s): Unknown Sulfa Antibiotics Swelling Medium 03/05/2024 Sulfamethoxazole-Trimethopri m 11/18/2012 Other Reaction(s): Swelling of oral cavity structure, Swelling of oral cavity structure, Unknown, Swelling of oral cavity structure, Unknown, Unknown tongue swelling
Reaction(s) : Unknown Medications acetaZOLAMIDE (Diamox) 125 MG tabletIndicatio ns:Meniere's disease, unspecified laterality Take 1 tablet (125 mg) by mouth Daily. 90 tablet 02/23/20 25 Active PARoxetine (Paxil) 30 MG tabletIndicatio ns:Depression, major, recurrent, moderate (CMS/HCC V28) Take 1 tablet (30 mg) by mouth every morning. 90 tablet 05/07/20 25 Active hydrOXYzine pamoate (Vistaril) 25 MG capsuleIndicati ons:Depression, major, recurrent, moderate (CMS/HCC V28) Take 1 capsule (25 mg) by mouth every 8 (eight) hours if needed for itching. 30 capsule 1 06/14/20 25 Active traZODone (Desyrel) 50 MG tabletIndicatio ns:Depression, major, recurrent, moderate (CMS/HCC V28),Insomnia due to other mental disorder Take 1 tablet (50 mg) by mouth as needed at bedtime for sleep. 90 tablet 3 08/11/20 25 Active furosemide (Lasix) 20 MG tabletIndicatio ns:Other ascites Take 1 tablet (20 mg) by mouth 2 (two) times a day as needed (swelling). 60 tablet 11 08/11/20 25 2025 Active HYDROcodone-andra taminophen ([place]) 5-325 MG tabletIndicatio ns:Other ascites Take 1 tablet by mouth every 6 (six) hours if needed for severe pain. 20 tablet 08/24/20 25 Active Additional Information Patient not taking.Reported on 09/13/2025 spironolactone (Aldactone) 25 MG tabletIndicatio ns:Portal hypertension (CMS/HCC V28) (CMS/HHS HCC) Take 1 tablet (25 mg) by mouth once per day. 90 tablet 1 09/13/20 25 Active HYDROcodone-andra taminophen ([place]) 5-325 MG tabletIndicatio ns:Other ascites Take 1 tablet by mouth every 6 (six) hours if needed for severe pain. 20 tablet 08/15/20 25 2024 Discontinued(R eorder) spironolactone (Aldactone) 25 MG tabletIndicatio ns:Portal hypertension (CMS/HCC V28) (CMS/HHS HCC) Take 1 tablet (25 mg) by mouth once per day. 30 tablet 5 09/06/20 25 2024 Discontinued spironolactone (Aldactone) 25 MG tabletIndicatio ns:Portal hypertension (CMS/HCC V28) (CMS/HHS HCC) TAKE 1 TABLET(25 MG) BY MOUTH DAILY 90 tablet 1 09/06/20 25 2024 Discontinued(R eorder) Active Problems Problem Noted Date Diagnosed Date Portal hypertension (CMS/HCC V28) 09/06/2025 Assessment & Plan (09/13/2025 2:51 PM PST): Doing ok on spironolactone BP is a bit soft agree leave dose where it is for now Continue slow diuresis Pending appt with specialist she may be candidate for intervention Continuing to monitor will go by how much ascites is paracentesed off May be able to do that bimonthly instead of weekly Orders: spironolactone (Aldactone) 25 MG tablet; Take 1 tablet (25 mg) by mouth once per day. Assessment & Plan (09/06/2025 9:36 AM PST): Reviewed imaging Starting spironolactone and referring to hepatology will need q6mo imaging to track for HCC but no obvious cause besides distended portal veins Yeast infection 08/11/2025 Assessment & Plan (08/11/2025 12:26 PM PDT): 2/ antibiotics inpatient Orders: fluconazole (Diflucan) 150 MG tablet; Take 1 tablet (150 mg) by mouth See administration instructions for 1 day. Take one tab now. Repeat in 7 days if symptoms persist. Other ascites 08/10/2025 Assessment & Plan (08/11/2025 12:26 PM PDT): Continuing to reaccumulate Initial cytology unrevealing. Low fluid protein suggests not malignant actually which conflicts with elevated CA-125. Imaging did not show ovaries just some diverticular disease. She was treated with iv antibitoics inpatient without much change. Still having ache in lower abdomen. Referral to oncology ongoing - fluid continues to reaccumulate she and daughter are planning on going to ER soon to get it drained again I agree with this - will look to see if we can get her a standing order with DI for this. Able to sleep and breathe ok. She has been eating more proteins but finds she can't eat as much lately. Orders: Referral to Hematology / Oncology; Future furosemide (Lasix) 20 MG tablet; Take 1 tablet (20 mg) by mouth 2 (two) times a day as needed (swelling). Elevated CA-125 08/10/2025 Assessment & Plan (08/11/2025 12:26 PM PDT): As above Orders: Referral to Hematology / Oncology; Future Pedal edema 06/14/2025 Assessment & Plan (06/14/2025 12:07 PM PDT): Mild 1-2+ up to ankles recommend elevation compression stockings no gastrocnemius tenderness to palpation normal strength. Cervical cancer screening 06/14/2025 Assessment & Plan (06/14/2025 12:07 PM PDT): Fern to [facility] [employer] for cervical exam Orders: Referral to Obstetrics / Gynecology; Future PTSD (post-traumatic stress disorder) 03/21/2024 Assessment & Plan (04/20/2024 12:29 PM PDT): Further excellent therapy today We discussed revelation that advocating for others is easier than advocating for herself Ran that forwards and backwards it really holds up. She has no problem confronting bad parents in public etc advocating for children Feels strong identification with any child who is being mistreated due to her own history Lots of good talk here keep thinking about it Assessment & Plan (03/21/2024 8:18 PM PDT): Extensive conversation today. Very anxious unless she is caring for a child somehow - shifting into caregiver role is protective. Strong shame drivers. Agoraphobia which is tough in an extrovert. Discussed relevance of self-discipline as a means of following an external model. Resume paxil use trazodone to sleep, f/up 1 month. Agoraphobia with panic attacks 03/21/2024 Assessment & Plan (06/01/2024 10:36 AM PDT): Thrown into a spin lately by receiving jury duty summons She is extremely anxious at the prospect Very worried about her ability to be objective in any proceeding Acute agoraphobia starts up just thinking about it I would just panic and get up and walk out and I don't want to get arrested She is only recently stable on her current medication regimen I would agree she is not fit for jury duty will write letter to that effect to [facility] Previously summonsed 25 years ago and got doctor's note of excuse then also Well adult exam 03/21/2024 Assessment & Plan (06/14/2025 12:07 PM PDT): It's time to get your mammogram. Please call [facility] ([facility]) or [facility] ([facility]) or [facility] ([facility]) to schedule a screening mammogram. Assessment & Plan (06/01/2024 10:37 AM PDT): Still has not received cologuard will reorder Pap smear records request submitted to [facility] Looks like a screening mammogram is due: call [phone] to schedule this at [facility]. You do not need a specific referral from our office and insurance should cover it. Assessment & Plan (04/20/2024 12:30 PM PDT): Try more gluten free foods gfeeling well Looks like a screening mammogram is due: call [phone] to schedule this at [facility]. You do not need a specific referral from our office and insurance should cover it. 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 Certainly can try halving dose see if that is still effective - only having tepisdes maybe 2x/week - not too bad - keep it iuip let me know. Assessment & Plan (04/20/2024 12:29 PM PDT): Ongoing L ear issue with hearing changes - can refer to ENT if desired Anxiety 09/14/2019 Pain in joint, multiple sites 08/22/2019 Obesity, unspecified 06/23/2018 Depression, major, recurrent, moderate 6 Assessment & Plan (08/11/2025 12:26 PM PDT): Stable continue bedtime trazodone mood seems ok today Orders: traZODone (Desyrel) 50 MG tablet; Take 1 tablet (50 mg) by mouth as needed at bedtime for sleep. Assessment & Plan (06/14/2025 12:07 PM PDT): Orders: traZODone (Desyrel) 50 MG tablet; Take 1 tablet (50 mg) by mouth as needed at bedtime for sleep. hydrOXYzine pamoate (Vistaril) 25 MG capsule; Take 1 capsule (25 mg) by mouth every 8 (eight) hours if needed for itching. Assessment & Plan (11/14/2024 2:16 PM PST): Patient reports compliance with antidepressant medications and feels stable at this dose. Denies SI/HI. Sleep appetite and mood all normal. Assessment & Plan (06/01/2024 10:34 AM PDT): Patient reports compliance with antidepressant medications and feels stable at this dose. Denies SI/HI. Sleep appetite and mood all normal. Assessment & Plan (04/20/2024 12:29 PM PDT): Patient reports compliance with antidepressant medications and feels stable at this dose. Denies SI/HI. Sleep appetite and mood all normal. I feel much better! Former smoker 07/02/2016 Menopausal symptoms 07/02/2016 Pain, low back 07/02/2016 Resolved Problems Problem Noted Date Diagnosed Date Resolved Date Muscle spasm of back 06/19/2022 024 Sinus infection 01/09/2022 04/19/2024 Perforated ear drum 05/27/2020 04/19/20 24 Adjustment disorder, unspecified 07/02/2016 04/19/2024 Encounters Date Type Department Care Team Description 09/21/2025 Orders Only [facility] [address] [place] [address] [place] [phone] Ab Costa MD 09/13/2025 1:45 PM PST Office Visit [facility] [address] [place] [address] [place] [phone] Ab Costa MD Portal hypertension (CMS/HCC V28) ([facility] HCC) (Primary Dx) 09/08/2025 Orders Only [address] [phone] System, Provider Not In 09/06/2025 Refill [facility] [address] [place] [address] [place] [phone] Ab Costa MD Portal hypertension (CMS/HCC V28) ([facility] HCC) 09/04/2025 Telephone [facility] [address] [place] [address] [place] [phone] Ab Costa MD 08/31/2025 Results Follow-Up [facility] [address] [place] [address] [place] [phone] Ab Costa MD Third Republican - MRI, Pelvis w/ contrast, Third Republican - MRI, Abdomen w/ contrast 08/29/2025 Orders Only [facility] [address] [place] [address] [place] [phone] Ab Costa MD 08/29/2025 Telephone [facility] [address] [place] [address] [place] [phone] Ab Costa MD 08/24/2025 Refill [facility] [address] [place] [address] [place] [phone] Ab Costa MD Other ascites 08/24/2025 Orders Only [facility] [address] [place] [address] [place] [phone] Ab Costa MD Other ascites; Elevated CA-125 08/16/2025 Telephone [facility] [address] [place] [phone] Rachel Olivares MA 08/14/2025 Refill [facility] [address] [place] [phone] Ab Costa MD Other ascites 08/10/2025 9:30 AM PDT Office Visit [facility] [address] [place] [phone] Ab Costa MD Other ascites (Primary Dx); Elevated CA-125; Depression, major, recurrent, moderate (CMS/HCC) [F33.1]; Insomnia due to other mental disorder; Yeast infection 08/10/2025 Telephone [facility] [address] [place] [phone] Ab Costa MD 08/10/[address] [phone] System, Provider Not In 08/09/2025 [facility] [address] [place] [phone] Ab Costa MD 08/06/[address] [phone] Jam Fong MD 08/05/[address] [phone] Jam Fong MD 08/04/[address] [phone] Jam Fong MD from Last 3 Months Immunizations Immunization Administration Dates Next Due Pfizer Grimm Cap SARS-CoV-2 Vaccination ,06/28/2021 Social History Tobacco Use Types Packs/Day Years Used Date Smoking Tobacco: Every Day Cigarettes Smokeless Tobacco: Never Tobacco Cessation:Ready to Q uit: Not Asked; Counseling Given: Not Answered Alcohol Use Standard Drinks/Week Comments Never 0 (1 standard drink = 0.6 oz pur e alcohol) PHQ-2 Answer Date Recorded Patient Health Questionnaire-2 Score 0 04/20/2024 Comments No Sex and Gender Information Value Date Recorded Sex Assigned at Not on file Legal Sex Female 7:58 AM PDT Gender Identity Not on file Sexual Orientation Not on file Last Filed Vital Signs Vital Sign Reading Time Taken Comments Blood Pressure 104/74 09/13/2025 1:35 PM PST Pulse 94 09/13/2025 1:35 PM PST Temperature 36.1 C (97 F) 09/13/2025 1:35 PM PST Respiratory Rate 20 09/03/2020 1:19 PM PST Oxygen Saturation 96% 09/13/2025 1:35 PM PST Inhaled Oxygen Concentration - - Weight 62.1 kg (137 lb) 09/13/2025 1:35 PM PST Height 160 cm (5' 3) 11/09/2024 10:58 AM PST Body Mass Index 24.27 11/09/2024 10:58 AM PST Plan of Treatment Health Maintenance Due Date Last Done Comments CT Colonography 1965 Colonoscopy 1965 FIT 1965 Sigmoidoscopy 1965 HIV Screening 1980 Hepatitis C Screening 1983 DTaP/Tdap/Td Vaccines (1 - Tdap) 1984 Pneumococcal Vaccine: 50+ Years (1 of 2 - PCV) 1984 Pap Smear 1986 Cervical Cancer Screening 1995 HPV/Cotest 1995 Mammogram 2005 Zoster Vaccines (1 of 2) 2015 COVID-19 Vaccine ( - season) 2025 08/04/2021, 06/28/2021, 02/28/2021, Additional history exists Influenza Vaccine (#1) 2025 Colorectal Cancer Screening 12/28/2027 FIT-DNA 12/28/2027 12/28/2024, 12/28/2024 RSV Vaccination aged 60+ and Patients (1 - 1-dose 75+ series) 2040 HIB Vaccines Aged Out No longer eligi ble based on patient's age to complete this topic HPV Vaccines (No Doses Required) Completed Hepatitis A Vaccines Aged Out No long er eligible based on patient's age to complete this topic IPV Vaccines Aged Out No longer eligi ble based on patient's age to complete this topic Meningococcal Vaccine Aged Out No rudolph elian eligible based on patient's age to complete this topic Rotavirus Vaccines Aged Out No longer eligible based on patient's age to complete this topic Procedures Procedure Name Priority Date/Time Associated Diagnosis Comments MRI ABDOMEN LIMITED W/O, INCLUDING LIVER LAB 09/19/2025 PARACENTESIS 09/14/2025 ICTOTEST URINE Routine 09/08/2025 7:50 AM PST URINALYSIS WITH MICROSCOPIC Routine 09/08/2025 7:50 AM PST URINALYSIS WITH MICROSCOPIC Routine 09/08/2025 7:50 AM PST URINALYSIS WITH MICROSCOPIC Routine 09/08/2025 7:49 AM PST BODY FLUID CELL COUNT W/DIFFERENTIAL Routine 09/08/2025 7:00 AM PST MANUAL DIFFERENTIAL Routine 09/08/2025 5 :55 AM PST PARTIAL THROMBOPLASTIN TIME (PTT), ACTIVATED Routine 09/08/2025 5:55 AM PST PROTHROMBIN TIME (PT) Routine 09/08/2025 5:55 AM PST LIPASE Routine 09/08/2025 5:55 AM PST MAGNESIUM, SERUM Routine 09/08/2025 5:55 AM PST COMPREHENSIVE METABOLIC PANEL (CMP) Routine 09/08/2025 5:55 AM PST CBC (COMPLETE BLOOD COUNT), W/AUTO DIFFERENTIAL Routine 09/08/2025 5:55 AM PST LAB REPORT 09/08/2025 PARACENTESIS 09/05/2025 BODY FLUID PROTEIN, TOTAL Routine 08/29/2025 1:35 PM PDT LAB REPORT 08/29/2025 MRI, PELVIS W/ CONTRAST STAT 08/29/2025 Other ascites Elevated CA-125 MRI, ABDOMEN W/ CONTRAST STAT 08/28/2025 Other ascites Elevated CA-125 IMAGING REPORT 08/20/2025 PARACENTESIS 08/15/2025 PROTHROMBIN TIME (PT) Routine 08/10/2025 11:20 AM PDT LIPASE Routine 08/10/2025 11:20 AM PDT COMPREHENSIVE METABOLIC PANEL (CMP) Routine 08/10/2025 11:20 AM PDT CBC (COMPLETE BLOOD COUNT), W/AUTO DIFFERENTIAL Routine 08/10/2025 11:20 AM PDT COMPREHENSIVE METABOLIC PANEL (CMP) Routine 08/06/2025 11:15 AM PDT CBC (COMPLETE BLOOD COUNT), W/AUTO DIFFERENTIAL Routine 08/06/2025 11:15 AM PDT ALBUMIN, BODY FLUID Routine 08/06/2025 1 0:10 AM PDT [facility] BACTERIA DET BY PCR Routine 10:10 AM PDT BODY FLUID PROTEIN, TOTAL Routine 08/06/2025 10:10 AM PDT BODY FLUID CELL COUNT W/DIFFERENTIAL Routine 08/06/2025 10:10 AM PDT GI PANEL (FILM ARRAY) Routine 08/06/2025 7:01 AM PDT LACTATE DEHYDROGENASE (LDH) Routine 08/05/2025 5:41 AM PDT COMPREHENSIVE METABOLIC PANEL (CMP) Routine 08/05/2025 5:41 AM PDT CBC (COMPLETE BLOOD COUNT), W/AUTO DIFFERENTIAL Routine 08/05/2025 5:41 AM PDT IMAGING REPORT 08/05/2025 CARBOHYDRATE ANTIGEN (CA) 19-9 Routine 08/04/2025 11:00 AM PDT CARCINOEMBRYONIC ANTIGEN (CEA) Routine 08/04/2025 11:00 AM PDT CANCER ANTIGEN (CA) 125 Routine 08/04/20 11:00 AM PDT IMAGING REPORT 08/04/2025 from Last 3 Months Results * MRI ABDOMEN LIMITED W/O, INCLUDING LIVER LAB (09/19/2025) Anatomical Region Laterality Modality Magnetic Resonan ce Ab Costa MD IMG MRI PROCEDURES MBI ONLY Fin al Result * Paracentesis (09/14/2025) Ab Costa MD IN CLINIC/BEDSIDE ORDERABLES Fi nal Result * ICTOTEST URINE (09/08/2025 7:50 AM PST) URINE BILI CONFIRM/ ICTOTEST Negative Negative [facility] 09/08/2025 7:50 AM PST 09/08/2025 7:54 AM PST us Provider Not In System LAB URINE ORDERABLES Natalie l Result [facility] * (ABNORMAL) Urinalysis with microscopic (09/08/2025 7:50 AM PST) Only the most recent of2 resultswithin the time period is included. Color, Urine YELLOW [facility] Clarity, Urine CLEAR [facility] pH, Urine 5.5 4.5 - 8.0 [facility] Specific [place], Urine >=1.030(H) 1.000 - 1.035 [facility] Protein, Ur TRACE(H) Negative [facility] GLUCOSE, URINE NEGATIVE Negative g/dL [facility] Ketones, Urine 3+(H) NEGATIVE [facility] Occult Blood Urine NEGATIVE Negative [facility] Nitrite Urine NEGATIVE Negative [facility] Bilirubin Urine 2+(H) NEGATIVE [facility] Urobilinogen, Urine 1.0 0.2 E.U./dL [facility] WBC Esterase Urine NEGATIVE NEGATIVE [facility] VOLUME URINE 10mL (spun) [facility] RBC, Urine None Seen 0-5/HPF [facility] WBC Casts, Urine None Seen 0-5/HPF [facility] Bacteria, Urine None Seen None [facility] Squamous Epithelial, Urine 0-1 /HPF 0-5/HPF [facility] CULTURE INDICATED URINE Cult Not Indicated [facility] 09/08/2025 7:50 AM PST 09/08/2025 7:54 AM [facility] Narrative [facility] - 09/08/2025 7:58 AM [facility] Urine Source: Urine, Clean Catch Culture if Indicated? Y us Provider Not In System LAB URINE ORDERABLES Natalie l Result [facility] * Body Fluid Cell Count w/Differential (09/08/2025 7:00 AM [facility]) Only the most recent of2 resultswithin the time period is included. Color, Fluid WHITE [facility] Appearance, Fluid CLOUDY [facility] Body Fluid Clotted? NO CLOTS PRESENT [facility] Body Fluid Tot Nucleated Cells 103 /uL [facility] Comment: Normal Synovial Fluid Reference Range: The inability to collect synovial fluid specimens in the normal, non-diseased population limits the ability to determine reference ranges. Literature suggest the following normal reference ranges: * WBC 13-180 cells/mm3 * RBC 0-2000 cells/mm3 Normal Serous Fluids Reference Ranges: The accumulation of fluid in a serous cavity is an indication of a disease state. The normal, non-diseased population has no fluid accumulation. Therefore, there are no normal reference ranges for serous fluids. However, the number of cells present in a serous fluid are used to aid in the classification, diagnosis, and treatment of disease. Body Fluid Red Blood Cells 583 /uL [facility] MESO/MACRO/MONO BODY FLUID 100 % [facility] 09/08/2025 7:00 AM PST 09/08/2025 7:15 AM PST Narrative [facility] - 09/08/2025 7:42 AM PST Source: Peritoneal Fluid us Provider Not In System LAB BODY FLUID ORDERABLES Final Result Performing Organization Address [facility]/ZIP Co de Phone Number [facility] * (ABNORMAL) CBC (Complete Blood Count), w/Auto Differential (09/08/2025 5:55 AM PST) Only the most recent of4 resultswithin the time period is included. Auto WBC 16.6(H) 4.5 - 11.0 X10 3/uL [facility] RBC 3.70(L) 4.0 - 5.2 X10 6/uL [facility] Hemoglobin 12.5 12.0 - 16.0 g/dL [facility] Hematocrit 37.0 36 - 46 % [facility] MCV 100.2(H) 80 - 100 fL [facility] MCH 33.7 26 - 34 PG [facility] ERYTHROCYTE MCV HGB CONCENTRATION % 33.7 30 - 36 % [facility] RDW 14.8 11.6 - 14.8 % [facility] Platelets 591(H) 150 - 400 X10 3/uL [facility] 09/08/2025 5:55 AM PST 09/08/2025 6:03 AM PST us Provider Not In System LAB BLOOD ORDERABLES Natalie l Result [facility] * (ABNORMAL) Manual Differential (09/08/2025 5:55 AM PST) Total Counted 100 [facility] Neutrophils % 69.0 38 - 70 % [facility] Bands % 2.0(L) 3 - 7 % [facility] Lymphocytes % 22.0(L) 25 - 45 % [facility] Monocytes % 5.0 2 - 11 % [facility] Eosinophils % 1.0(L) 2 - 4 % [facility] Basophils % 1.0 0 - 1 % [facility] NEUTROPHILS ABSOLUTE MANUAL 11,786(H) 3,000 - 5,900 /uL [facility] RBC MORPHOLOGY See Below [facility] MACROCYTOSIS 1+(H) [facility] 09/08/2025 5:55 AM PST 09/08/2025 6:03 AM PST us Provider Not In System LAB BLOOD ORDERABLES Natalie l Result Performing Organization Address [facility] * Partial Thromboplastin Time (PTT), Activated (09/08/2025 5:55 AM PST) PARTIAL THROMBOPLASTIN TIME 32 25.1 - 36.5 SECONDS [facility] Comment: Adjunctive to Coronary Thrombosis Heparin (0.1 - 0.3 UI/mL) = 40.8 - 62.7 seconds Heparin (0.3 - 0.7 UI/mL) = 62.7 - 106.4 seconds. 09/08/2025 5:55 AM PST 09/08/2025 6:03 AM PST us Provider Not In System LAB BLOOD ORDERABLES Natalie l Result Performing Organization Address [facility] * Prothrombin Time (PT) (09/08/2025 5:55 AM PST) Only the most recent of2 resultswithin the time period is included. Prothrombin Time 11.6 9.4 - 12.5 SECONDS [facility] INR 1.0 0.9 - 1.3 [facility] 09/08/2025 5:55 AM PST 09/08/2025 6:03 AM PST Provider Not In System LAB BLOOD ORDERABLES Natalie l Result Performing Organization Address [facility] Phone [facility] * Magnesium, Serum (09/08/2025 5:55 AM PST) Magnesium 2.0 1.6 - 2.3 mg/dL [facility] 09/08/2025 5:55 AM PST 09/08/2025 6:03 AM PST us Provider Not In System LAB BLOOD ORDERABLES Natalie l Result [facility] * Lipase (09/08/2025 5:55 AM PST) Only the most recent of2 resultswithin the time period is included. Lipase 73 23 - 300 U/L [facility] 09/08/2025 5:55 AM PST 09/08/2025 6:03 AM PST us Provider Not In System LAB BLOOD ORDERABLES Natalie l Result [facility] * (ABNORMAL) Comprehensive Metabolic Panel (CMP) (09/08/2025 5:55 AM PST) Only the most recent of4 resultswithin the time period is included. Sodium 135(L) 137 - 145 mmol/L [facility] Potassium 3.6 3.4 - 5.1 mmol/L [facility] Chloride 108(H) 98 - 107 mmol/L [facility] CO2 26 22 - 32 mmol/L [facility] BUN 18(H) 7 - 17 mg/dL [facility] Creatinine 0.81 0.52 - 1.04 mg/dL [facility] eGFR >60 >60 mL/min [facility] Comment: Reported eGFR is based the CKD-EPI 2020 equation that does not use a race coefficient. An eGFR below 60 mL/min/1.73m2 suggests that some kidney damage has occurred, and indicative of chronic kidney disease if persisting greater than 3 months. An eGFR less than 15 is indicative of kidney failure. BUN/CREATININE RATIO 22.2(H) 6 - 22 [facility] Glucose 98 70 - 99 mg/dL [facility] Calcium 8.3(L) 8.4 - 10.2 mg/dL [facility] Total Bilirubin 0.3 0.2 - 1.3 mg/dL [facility] AST 84(H) 14 - 36 IU/L [facility] ALT (SGPT) 39(H) <35 IU/L [facility] Alkaline Phosphatase 1,369(H) 38 - 126 U/L [facility] Total Protein 6.0(L) 6.3 - 8.2 g/dL [facility] Albumin 2.7(L) 3.5 - 5.0 g/dL [facility] GLOBULIN (SERUM) 3.3 1.7 - 4.1 g/dL [facility] A/G Ratio 0.8(L) 1.0 - 2.8 [facility] 09/08/2025 5:55 AM PST 09/08/2025 6:03 AM PST us Provider Not In System LAB BLOOD ORDERABLES Natalie larry Result [facility] * LAB REPORT (09/08/2025) Only the most recent of2 resultswithin the time period is included. us Ab Costa MD LAB BLOOD ORDERABLES Final Resu lt * Paracentesis (09/05/2025) us Ab Costa MD IN CLINIC/BEDSIDE ORDERABLES Fi nal Result * Body Fluid Protein, Total (08/29/2025 1:35 PM PDT) Only the most recent of2 resultswithin the time period is included. Protein, Fluid 0.4 . g/dL [facility] Comment: : BODY FLUID TYPE : TOTAL PROTEIN : : : : : Amniotic Fluid : <0.4 : : : : : : Nonmalignant: <3.0 : : Ascitic Fluid : Malignant: >3.0 : : : : : Bile, Clear : <0.9 : : : : : Bile, Yellow : 0.2 - 0.6 : : : : : Lymph : 2.2 - 6.0 : : : : : Human Milk : 1.9 - 2.0 : : : : : Nasal Secretion : 0.1 - 3.5 : : : : : Pancreatic : 0.0 - 0.1 : : Juice : (post stimulation) : : : : : : Transudate: <3.0 : : Pleural Fluid : Exudate: >3.0 : : : : : Saliva : 0.1 - 0.2 : : (Mixed Glands) : : : : : : Synovial Fluid : <2.5 : : : : : Tears : 0.8 - 0.9 : : : : Antoni Terry V. Reference Intervals for Adults and Children 2008. Ninth Edition (V9.1) [employer], [facility]; [place]: May 2009. Performed at: [facility] [address] [id number] Process Assistant: Clemente Butler MD, Phone: [phone] 08/29/2025 1:35 PM PDT 08/29/2025 2:03 PM PDT Result Stephen Costa MD LAB BODY FLUID ORDERABLES Final Result [facility] * Third Republican - MRI, Pelvis w/ contrast (08/29/2025) us Ab Costa MD G MRI PROCEDURES Final Result * Third Republican - MRI, Abdomen w/ contrast (08/28/2025) Result Stephen Costa MD G MRI PROCEDURES Final Result * IMAGING REPORT (08/20/2025) Only the most recent of3 resultswithin the time period is included. Anatomical Region Laterality Modality Radiographic Madeleine ging Result Stephen Costa MD IMG DXA PROCEDURES Final Result * Paracentesis (08/15/2025) Result Stephen Costa MD IN CLINIC/BEDSIDE ORDERABLES Fi nal Result * ALBUMIN, BODY FLUID (08/06/2025 10:10 AM PDT) Albumin, Fluid <0.2 Not Estab. g/dL [facility] Comment: The reference interval(s) and other method performance specifications have not been established for this body fluid. The test result must be integrated into the clinical context for interpretation. Performed at: [facility] [address] [address], [place], [place] [id number] Process Assistant: Clemente Bulter MD, Phone: [phone] 08/06/2025 10:1 0 AM PDT 08/06/2025 11:08 AM PDT us Jam Fong MD LAB CYTOLOGY ORDERABLES Final Re sult [facility] * UW BACTERIA DET BY PCR (08/06/2025 10:10 AM PDT) BACTERIAL DETECTION BY PCR See Scanned Report [facility] 08/06/2025 10:1 0 AM PDT 08/06/2025 10:29 AM PDT us Jam Fong MD LAB OBSERVATION METHODS Final Re sult Performing Organization Address City/[facility]/ZIP Co de Phone Number [facility] * GI PANEL (FILM ARRAY) (08/06/2025 7:01 AM PDT) CAMPYLOBACTER Not Detected Not Detect [facility] Clostridium difficile (Toxin A/B) Not Detected Not Detect [facility] PLESIOMONAS SHIGELLOIDES Not Detected Not Detect [facility] SALMONELLA (PCR) Not Detected Not Detect [facility] VIBRO Not Detected Not Detect [facility] Vibrio cholerae Not Detected Not Detect [facility] Yersinia enterocolitica Not Detected Not Detect [facility] Enteroaggregative E. coli (EAEC) Not Detected Not Detect [facility] Enteropathogenic E. coli (EPEC) Not Detected Not Detect [facility] Enterotoxigenic E. coli (ETEC) lt/st Not Detected Not Detect [facility] Shiga-like toxin-producing E. coli (STEC) stx1/stx2 Not Detected Not Detect [facility] Shigella/Enteroinvas hiro E. coli (EIEC) Not Detected Not Detect [facility] CRYPTOSPORIDIUM Not Detected Not Detect [facility] Cyclospora cayetanensis Not Detected Not Detect [facility] Entamoeba histolytica Not Detected Not Detect [facility] GIARDIA LAMBLIA (PCR) Not Detected Not Detect [facility] Adenovirus F 40/41 Not Detected Not Detect [facility] Astrovirus Not Detected Not Detect [facility] Norovirus Not Detected Not Detect [facility] Rotavirus A Not Detected Not Detect [facility] SAPOVIRUS Not Detected Not Detect [facility] 08/06/2025 7:01 AM PDT 08/06/2025 8:27 AM PDT us Jam Fong MD LAB OBSERVATION METHODS Final Re sult Performing Organization Address [facility]/ZIP Co de Phone Number [facility] * Lactate Dehydrogenase (LDH) (08/05/2025 5:41 AM PDT) LD 216 120 - 246 U/L [facility] Comment: Change in Methodology and Reference Interval (Ranges) New Reference Range applies to LDH as of 09/03/2022 and is now traceable to [facility] Reference Method. Review and trend results with caution. LDH results performed at [facility] before 09/03/2022 will have a different reference interval. 08/05/2025 5:41 AM PDT 08/05/2025 9:52 AM PDT [facility] - 08/05/2025 10:07 AM PDT ADD ON TO C06 PER RN us Jam Fong MD LAB BLOOD ORDERABLES Final Resul t Performing Organization Address [facility] Number [facility] * Carbohydrate Antigen (CA) 19-9 (08/04/2025 11:00 AM PDT) [facility] CANCER (CARBOHYDRATE) AG 19-9 16 0 - 35 U/mL [facility] Comment: [facility] Electrochemiluminescence Immunoassay (ECLIA) Values obtained with different assay methods or kits cannot be used interchangeably. Results cannot be interpreted as absolute evidence of the presence or absence of malignant disease. Performed at: [facility] [address] [id number] Process Assistant: Clemente Butler MD, Phone: [phone] 08/04/2025 11:0 0 AM PDT 08/04/2025 5:23 PM PDT Jam Fong MD LAB BLOOD ORDERABLES Final Resul t Performing Organization Address [facility] * (ABNORMAL) Cancer Antigen (CA) 125 (08/04/2025 11:00 AM PDT) CA 125 1,260(H) 0 - 35 U/mL [facility] Comment: --- 08/04/252038 --- CA 125 previously reported as: > 1000 H U/mL 08/04/2025 11:0 0 AM PDT 08/04/2025 5:12 PM PDT us Jam Fong MD LAB BLOOD ORDERABLES Edited Resu lt - Final Performing Organization Address [facility] * Carcinoembryonic Antigen (CEA) (08/04/2025 11:00 AM PDT) CEA 1.7 0.1 - 3.0 ng/mL [facility] Comment: Smokers and individuals with inflammatory bowel disease may have CEA levels up to 5.0 ng/ml. Individuals with hepatitis and/or cirrhosis may have CEA levels up to 10.0 ng/mL. 08/04/2025 11:0 0 AM PDT 08/04/2025 5:12 PM PDT us Jam Fong MD LAB BLOOD ORDERABLES Final Resul t Performing Organization Address [facility] from Last 3 Months Care Teams Blind Teacher Relationship Specialty Start Date End Date Ab Costa MD [address] [place] [id number] PCP - General Family Medicine 02/07/24
--- OUTSIDE RECORDS SUMMARY | 2025-09-21 14:45 | XMS_ITS | Encounter Summary ---
Author Organization [facility] Address [address] [place] [address] Phone [phone] Care Team Providers Care Sheet Rock Nailer Name Role Phone Ab Costa MD Primary Care Provider [phone] Encounter Details Date Type Department Care Team (Late st Contact Info) Description 08/31/2025 Results Follow-Up [facility] [address] [place] [phone] Ab Costa MD [address] [place] [phone] Third Alliance Party - MRI, Pelvis w/ contrast, Third Alliance Party - MRI, Abdomen w/ contrast Social History Tobacco Use Types Packs/Day Years [...] on file documented as of this encounter Plan of Treatment Not on file documented as of this encounter Visit Diagnoses Not on filedocumented in this encounter Additional Health Concerns Assessment Noted Time PHQ-9 Depression Total Score: 2 04/20/20 24 10:52 AM PDT documented as of this encounter Care Teams Sheet Rock Nailer Relationship Specialty Start Date End Date Ab Costa MD [address] [place] [id number] PCP - General Family Medicine 02/07/24 documented as of this encounter
--- OUTSIDE RECORDS SUMMARY | 2025-09-21 14:45 | XMS_ITS | Clinical Summary ---
Author Organization [facility] Address [address] [place] [address] Care Team Providers Care Registered Dental Hygienist Name Role Phone Ab Costa MD Primary Care Provider [phone] Allergies Active Allergy Reactions Criticality Noted Date Comments Naproxen 08/09/2025 Other Reaction(s): Unknown Reaction(s): Unknown Sulfa (Sulfonamide Antibiotics) Swelling Medium 03/05/2024 Sulfamethoxazole-Trimethop rim 11/18/2012 Other Reaction(s): Swelling of oral cavity structure, Swelling of oral cavity structure, Unknown, Swelling of oral cavity structure, Unknown, Unknown tongue swelling
Reaction(s): Unknown Medications acetaZOLAMIDE (DIAMOX) 125 mg tablet Take 1 tablet (125 mg total) by mouth daily 02/22/2025 Active fluconazole (DIFLUCAN) 150 mg tablet 08/14/2025 Active furosemide (LASIX) 20 mg tablet Take 1 tablet (20 mg total) by mouth 2 times daily as needed 08/11/2025 Active HYDROcodone-andra taminophen (NORCO) 5-325 mg Take 1 tablet by mouth every 6 hours as needed 08/15/2025 Active hydrOXYzine (VISTARIL) 25 mg capsule Take 1 capsule (25 mg total) by mouth every 8 hours as needed 06/14/2025 Active PARoxetine (PAXIL) 30 mg tablet Take 1 tablet (30 mg total) by mouth 05/07/2025 Active traZODone (DESYREL) 50 mg tablet Take 1 tablet (50 mg total) by mouth once daily as needed 08/11/2025 Active Active Problems No known active problems Encounters Date Type Department Care Team Description 09/06/2025 Telephone [facility] On[facility] [address], [address] [place] [address] Skylar Ashraf CX appt 08/27/2025 Telephone [facility] [address], [address] [place] [address] Kenzie Aguilera RN info needed for authorization 08/22/2025 4:45 PM PDT - 08/22/2025 11:59 PM PDT Hospital Encounter [facility] Ultrasound [address] [place] [address] Tyson Kemp MD Pain and swelling of lower leg, left; Pain and swelling of lower leg, right Discharge Disposition: Home/Self Care 08/22/2025 3:20 PM PDT Consult [facility] [address], [address] [place] [address] Tyson Kemp MD Pain and swelling of lower leg, left (Primary Dx); Pain and swelling of lower leg, right; Elevated CA-125; Malignant ascites (CMS/HCC) from Last 3 Months Family History Medical History Relation Comments Lung cancer Mother Bone cancer Mother's Sister Relation Status Comments Mother Mother's Sister Social History Tobacco Use Types Packs/Day Years Used Date Smoking Tobacco: Every Day Cigarettes Tobacco Cessation:Ready to Q uit: Not Asked; Counseling Given: Not Answered Comments Unknown Sex and Gender Information Value Date Recorded Sex Assigned at Not on file Legal Sex Female 2:20 PM PDT Gender Identity Not on file Sexual Orientation Not on file Last Filed Vital Signs Vital Sign [place] Time Taken Comments Blood Pressure 109/67 03/05/2024 5:39 PM PDT Pulse 64 03/05/2024 5:39 PM PDT Temperature 36.4 C (97.5 F) 03/05/2024 5:39 PM PDT Respiratory Rate 16 08/22/2025 3:12 PM PDT Oxygen Saturation 99% 03/05/2024 5:39 PM PDT Inhaled Oxygen Concentration - - Weight 58.5 kg (129 lb) 08/22/2025 3:12 PM PDT Height 160 cm (5' 3) 08/22/2025 3:12 PM PDT Body Mass Index 22.85 08/22/2025 3:12 PM PDT Plan of Treatment Health Maintenance Due Date Last Done Comments Breast Cancer Screening 1965 MMR Vaccines (1 of 1 - Standard series) 1966 Depression Screening (PHQ-2) 1977 DTaP,Tdap,and Td Vaccines (1 - Tdap) 1984 HM Pneumococcal Adult 50+ (1 of 2 - PCV) 1984 Hepatitis B Vaccines (1 of 3 - 19+ 3-dose series) 1984 Cervical Cancer Screening Combined Topic 1995 Cervical Cancer-Pap screening 1995 HPV/Cotest 1995 Colorectal Cancer Screening (Colonoscopy) 2010 Colorectal Cancer Screening (FOBT) 2010 Zoster Vaccines (1 of 2) 2015 COVID-19 Vaccine ( season) 2025 08/04/2021, 06/28/2021, 02/28/2021, Additional history exists Influenza Vaccine (#1) 2025 Colorectal Cancer Screening (Fecal DNA) 12/28/2027 12/28/2024 Colorectal Cancer Screening Combined 12/28/2027 RSV Patients Over 60 years OR qualifying ( Patients) (1 - 1-dose 75+ series) 2040 HPV Vaccines Aged Out No longer eligi ble based on patient's age to complete this topic Hepatitis A Vaccines Aged Out No long er eligible based on patient's age to complete this topic IPV Vaccines Aged Out No longer eligi ble based on patient's age to complete this topic Procedures Procedure Name Priority Date/Time Associated Diagnosis Comments US VENOUS LOWER EXTREMITY DOPPLER BILATERAL STAT 08/22/2025 5:12 PM PDT Pain and swelling of lower leg, left Pain and swelling of lower leg, right MISCELLANEOUS LAB TEST 08/04/2025 from Last 3 Months Results * US VENOUS DVT LOWER EXTREMITY DOPPLER BILATERAL (08/22/2025 5:12 PM PDT) Anatomical Region Laterality Modality Bilateral Ultrasound 08/22/2025 5:15 PM PDT Narrative 08/22/2025 5:15 [place]. [address] PATIENT NAME: LILLI EDMONDS : 1965 GENDER: F EXAM DATE: 08/22/2025 16:45 ORDERED FROM: [facility] ORDERING PHYSICIAN: TYSON KEMP CC: -- - - - CONTRAST: READING STATION ID: [id number] mGy: PROCEDURE: US VENOUS LOWER EXTREMITY DOPPLER BILATERAL INDICATIONS: Left leg > right leg TECHNIQUE: Real-time imaging, as well as color and pulse Doppler interrogation, were performed of the deep veins of both legs from the inguinal ligament to the popliteal fossa, with documentation of the visualized calf veins. COMPARISON: None. FINDINGS: Right: The common femoral, femoral, popliteal, and the visualized calf veins are normally compressible, and free of intraluminal thrombus. Color and pulse Doppler demonstrate normal phasic intravascular flow. There is normal augmentation response to distal compression maneuver. Left: The common femoral, femoral, popliteal, and the visualized calf veins are normally compressible, and free of intraluminal thrombus. Color and pulse Doppler demonstrate normal phasic intravascular flow. There is normal augmentation response to distal compression maneuver. Bilateral lower leg edema. Bilateral prominent groin lymph nodes, nonspecific, possibly reactive IMPRESSION: No findings of deep venous thrombosis in either lower extremity. Reviewed by: Arnaldo Woodward M.D. on 08/22/2025 at 17:15 Approved by: Arnaldo Woodward M.D. on 08/22/2025 at 17:15 Procedure Note Arnaldo Woodward MD - 08/22/2025 [place]. [address] PATIENT NAME: LILLI EDMONDS : 1965 GENDER: F EXAM DATE: 08/22/2025 16:45 [facility]ICIAN: TYSON KEMP CC: -- - - - CONTRAST: READING STATION ID: [id number] mGy: PROCEDURE: US VENOUS LOWER EXTREMITY DOPPLER BILATERAL INDICATIONS: Left leg > right leg TECHNIQUE: Real-time imaging, as well as color and pulse Doppler interrogation, wereperformed of the deep veins of both legs from the inguinal ligament to thepopliteal fossa, with documentation of the visualized calf veins. COMPARISON: None. FINDINGS: Right: The common femoral, femoral, popliteal, and the visualized calfveins are normally compressible, and free of intraluminal thrombus. Colorand pulse Doppler demonstrate normal phasic intravascular flow. There isnormal augmentation response to distal compression maneuver. Left: The common femoral, femoral, popliteal, and the visualized calfveins are normally compressible, and free of intraluminal thrombus. Colorand pulse Doppler demonstrate normal phasic intravascular flow. There isnormal augmentation response to distal compression maneuver. Bilateral lower leg edema. Bilateral prominent groin lymph nodes,nonspecific, possibly reactive IMPRESSION: No findings of deep venous thrombosis in either lower extremity. Reviewed by: Arnaldo Woodward M.D. on 08/22/2025 at 17:15 Approved by: Arnaldo Woodward M.D. on 08/22/2025 at 17:[address] [facility] US PROCEDURES Final Resu lt * MISCELLANEOUS LAB TEST (08/04/2025) Narrative 08/04/2025 Ordered by an unspecified provider. Provider External LAB BLOOD ORDERABLES Final Result from Last 3 Months Insurance [employer] Care Teams Registered Dental Hygienist Relationship Specialty Start Date End Date Ab Costa MD [address] [place] [address] PCP - General Family Medicine 08/13/25
== END 2025-09-19 11:13 | disposition home or self-care (01) ==
LOC: US 10:01
PROVIDERS: PCP Family Medicine; Referring Provider Family Medicine; Visit Provider Family Medicine
DX: R18.8 Other ascites (principal); R97.1 Elevated cancer antigen 125 [CA 125]
CPT/HCPCS: 76705

== ENCOUNTER 2025-09-24 12:57 | Outpatient (CLI) | payer OTHER, SELFPAY ==
[2025-08-04 14:04] VITALS: BMI 22.2
--- NOTE | 2025-09-24 12:59 | DI.US.S_ITS ---
PROCEDURE: ULTRASOUND PARA THERAPUTIC INDICATIONS: Ascites TECHNIQUE: The indications, alternatives, benefits, risks, and complications of the procedure were explained to the patient. Written informed consent was obtained and placed in the chart. The abdomen and pelvis were examined sonographically, and an appropriate site was chosen for paracentesis. The skin was prepared and draped in the usual sterile fashion, and 1% lidocaine was infiltrated from the skin down through the peritoneal surface. A 19-gauge catheter-covered needle was then introduced into the peritoneal space, the catheter was advanced and the needle was withdrawn, and thereafter peritoneal fluid was withdrawn. The catheter was then removed and a dressing was applied. The fluid was discarded if the clinician did not order diagnostic testing of the fluid. COMPARISON: [facility], , ULTRASOUND PARA THERAPUTIC, 09/14/2025, 8:37. FINDINGS: Access site: left lower quadrant Needle: One-Step centesis catheter with introducer needle. Fluid volume and description: 4400 cc Fluid sent for diagnostic testing: none Medications: 1% lidocaine for local anaesthesia. Complications: None. IMPRESSION: Successful ultrasound-guided paracentesis. Dictated by: Blaise Singh M.D. on 09/26/2025 at 8:20 Approved by: Blaise Singh M.D. on 09/26/2025 at 8:20
[2025-09-24 13:25] VITALS: BP 116/72; PULSE 93; RESP 16; TEMP 36.7; O2SAT 97
[2025-09-24 13:47] VITALS: BP 109/72; PULSE 88; RESP 16; O2SAT 98
[2025-09-24 14:00] VITALS: BP 103/69; PULSE 84; RESP 16; O2SAT 99
[2025-09-24 14:15] VITALS: BP 107/72; PULSE 85; RESP 16; O2SAT 99
== END 2025-09-24 14:22 | disposition home or self-care (01) ==
LOC: US 12:57
PROVIDERS: PCP Family Medicine; Referring Provider Family Medicine; Visit Provider Family Medicine
DX: R18.8 Other ascites (principal); R97.1 Elevated cancer antigen 125 [CA 125]
CPT/HCPCS: 49083

== ENCOUNTER 2025-10-01 12:51 | Outpatient (CLI) | payer OTHER, SELFPAY ==
[2025-08-04 14:04] VITALS: BMI 22.2
--- NOTE | 2025-10-01 12:55 | DI.US.S_ITS ---
PROCEDURE: US PARACENTESIS INDICATIONS: ASCITES TECHNIQUE: The indications, alternatives, benefits, risks, and complications of the procedure were explained to the patient. Written informed consent was obtained and placed in the chart. The abdomen and pelvis were examined sonographically, and an appropriate site was chosen for paracentesis. The skin was prepared and draped in the usual sterile fashion, and 1% lidocaine was infiltrated from the skin down through the peritoneal surface. A 19-gauge catheter-covered needle was then introduced into the peritoneal space, the catheter was advanced and the needle was withdrawn, and thereafter peritoneal fluid was withdrawn. The catheter was then removed and a dressing was applied. The fluid was discarded if the clinician did not order diagnostic testing of the fluid. COMPARISON: [facility], PARACENTESIS, 08/10/2025, 15:44. FINDINGS: Access site: Left lower quadrant Needle: One-Step centesis catheter with introducer needle. Fluid volume and description: 3950 cc of chylous fluid Fluid sent for diagnostic testing: Not applicable Medications: 1% lidocaine for local anaesthesia. Complications: None. IMPRESSION: Successful ultrasound-guided paracentesis. Dictated by: Blaise Singh M.D. on 10/01/2025 at 15:30 Approved by: Blaise Singh M.D. on 10/01/2025 at 15:31
[2025-10-01 13:15] VITALS: BP 115/77; PULSE 92; RESP 16; TEMP 36.5; O2SAT 97
[2025-10-01 13:49] VITALS: BP 105/76; PULSE 91; RESP 16; O2SAT 94
[2025-10-01 14:00] VITALS: BP 110/77; PULSE 91; RESP 16; O2SAT 96
[2025-10-01 14:20] VITALS: BP 108/75; PULSE 88; RESP 16; O2SAT 97
== END 2025-10-01 14:27 | disposition home or self-care (01) ==
LOC: US 12:52
PROVIDERS: PCP Family Medicine; Referring Provider Family Medicine; Visit Provider Family Medicine
DX: R18.8 Other ascites (principal); R97.1 Elevated cancer antigen 125 [CA 125]
CPT/HCPCS: 49083

== ENCOUNTER 2025-10-08 13:08 | Outpatient (CLI) | payer OTHER, SELFPAY ==
[2025-08-04 14:04] VITALS: BMI 22.2
--- NOTE | 2025-10-08 13:09 | DI.US.S_ITS ---
PROCEDURE: ULTRASOUND PARA THERAPUTIC INDICATIONS: ascites TECHNIQUE: The indications, alternatives, benefits, risks, and complications of the procedure were explained to the patient. Written informed consent was obtained and placed in the chart. The abdomen and pelvis were examined sonographically, and an appropriate site was chosen for paracentesis. The skin was prepared and draped in the usual sterile fashion, and 1% lidocaine was infiltrated from the skin down through the peritoneal surface. A 19-gauge catheter-covered needle was then introduced into the peritoneal space, the catheter was advanced and the needle was withdrawn, and thereafter peritoneal fluid was withdrawn. The catheter was then removed and a dressing was applied. The fluid was discarded if the clinician did not order diagnostic testing of the fluid. COMPARISON: [facility], US PARACENTESIS, 10/01/2025, 13:30. [facility], ULTRASOUND PARA THERAPUTIC, 09/24/2025, 13:35. FINDINGS: Access site: Left lower quadrant. Needle: One-Step centesis catheter with introducer needle. Fluid volume and description: Straw-colored chylorus fluid. Fluid sent for diagnostic testin L removed. Medications: 1% lidocaine for local anaesthesia. Complications: None. Was asked by the nurse to evaluate the patient post procedure. Nurse notes pulsating at the skin in the subxiphoid/left upper quadrant. The patient appears well. Blood pressure 107 peak systolic. Heart rate in the range of 80 beats per minute. The patient's liver is palpated in the right upper quadrant. The abdomen is soft and without rebound. No abnormality is palpated in the left upper quadrant or subxiphoid. Targeted ultrasound was performed. No large pericardial effusion. The volume of ascites is significantly decreased. A left pleural effusion is noted. The patient reports that she is feeling better. IMPRESSION: Successful ultrasound-guided therapeutic paracentesis. 5 L removed. Incidental left pleural effusion is noted. Ultrasound-guided random liver biopsy may be helpful for histologic analysis of the liver for fibrosis/cirrhosis. Dictated by: Francisco J Bartholomew M.D. on 10/08/2025 at 15:59 Approved by: Francisco J Bartholomew M.D. on 10/08/2025 at 16:05
[2025-10-08 13:40] VITALS: BP 117/79; PULSE 91; RESP 16; TEMP 36.6; O2SAT 93
[2025-10-08 14:10] VITALS: BP 117/77; PULSE 90; RESP 16; O2SAT 93
[2025-10-08 14:15] VITALS: BP 118/74; PULSE 91; RESP 16; O2SAT 93
[2025-10-08 14:30] VITALS: BP 110/72; PULSE 89; RESP 16; O2SAT 93
[2025-10-08 14:45] VITALS: BP 107/68; PULSE 89; RESP 16; O2SAT 93
[2025-10-08 15:00] VITALS: BP 108/71; PULSE 90; RESP 16; O2SAT 93
== END 2025-10-08 15:05 | disposition home or self-care (01) ==
LOC: US 13:08
PROVIDERS: PCP Family Medicine; Referring Provider Family Medicine; Visit Provider Family Medicine
DX: R18.8 Other ascites (principal); J90 Pleural effusion, not elsewhere classified; R97.1 Elevated cancer antigen 125 [CA 125]
CPT/HCPCS: 49083

== ENCOUNTER 2025-10-15 14:11 | Outpatient (CLI) | payer OTHER, SELFPAY ==
[2025-08-04 14:04] VITALS: BMI 22.2
--- NOTE | 2025-10-15 14:14 | DI.US.S_ITS ---
PROCEDURE: ULTRASOUND PARA THERAPUTIC INDICATIONS: ascites TECHNIQUE: The indications, alternatives, benefits, risks, and complications of the procedure were explained to the patient. Written informed consent was obtained and placed in the chart. The abdomen and pelvis were examined sonographically, and an appropriate site was chosen for paracentesis. The skin was prepared and draped in the usual sterile fashion, and 1% lidocaine was infiltrated from the skin down through the peritoneal surface. A 19-gauge catheter-covered needle was then introduced into the peritoneal space, the catheter was advanced and the needle was withdrawn, and thereafter peritoneal fluid was withdrawn. The catheter was then removed and a dressing was applied. The fluid was discarded if the clinician did not order diagnostic testing of the fluid. COMPARISON: [facility], , ULTRASOUND PARA THERAPUTIC, 10/08/2025, 14:03. FINDINGS: Access site: Right upper quadrant Needle: One-Step centesis catheter with introducer needle. Fluid volume and description: 4750 mL clear/chylous appearance Fluid sent for diagnostic testing: No Medications: 1% lidocaine for local anaesthesia. Complications: None. IMPRESSION: Successful ultrasound-guided paracentesis. Dictated by: Hamilton Denny M.D. on 10/15/2025 at 19:08 Approved by: Hamilton Denny M.D. on 10/15/2025 at 19:09
[2025-10-15 14:30] VITALS: BP 113/66; PULSE 102; RESP 16; TEMP 36.5; O2SAT 95
[2025-10-15 15:01] LABS: Hematocrit 49.4 % (36-46); Hemoglobin 16.2 g/dL (12.0-16.0); INR 1.0 (0.9-1.3); Mean Corpuscular HGB Conc 32.7 % (30-36); Mean Corpuscular Hemoglobin 32.4 PG (26-34); Mean Corpuscular Volume 98.8 fL (80-100); Platelet Count 446 X10^3/uL (150-400); Prothrombin Time 11.3 SECONDS (9.4-12.5)
[2025-10-15 15:35] VITALS: BP 101/72; PULSE 92; RESP 16; O2SAT 91
[2025-10-15 15:45] VITALS: BP 107/70; PULSE 96; RESP 16; O2SAT 91
[2025-10-15 16:00] VITALS: BP 102/70; PULSE 92; RESP 16; O2SAT 91
[2025-10-15 16:15] VITALS: BP 106/63; PULSE 94; RESP 16; O2SAT 91
[2025-10-15 16:30] VITALS: BP 96/59; PULSE 91; RESP 16; O2SAT 91
== END 2025-10-15 16:44 | disposition home or self-care (01) ==
LOC: US 14:13
PROVIDERS: PCP Family Medicine; Visit Provider Radiology Diagnostic Radiology
DX: R18.8 Other ascites (principal); R97.1 Elevated cancer antigen 125 [CA 125]
CPT/HCPCS: 49083; 85027; 85610

== ENCOUNTER 2025-10-22 13:03 | Outpatient (CLI) | payer OTHER, SELFPAY ==
[2025-08-04 14:04] VITALS: BMI 22.2
--- NOTE | 2025-10-22 | DI.US.S_ITS ---
PROCEDURE: US PARACENTESIS INDICATIONS: ASCITIES TECHNIQUE: The indications, alternatives, benefits, risks, and complications of the procedure were explained to the patient. Written informed consent was obtained and placed in the chart. The abdomen and pelvis were examined sonographically, and an appropriate site was chosen for paracentesis. The skin was prepared and draped in the usual sterile fashion, and 1% lidocaine was infiltrated from the skin down through the peritoneal surface. A 19-gauge catheter-covered needle was then introduced into the peritoneal space, the catheter was advanced and the needle was withdrawn, and thereafter peritoneal fluid was withdrawn. The catheter was then removed and a dressing was applied. The fluid was discarded if the clinician did not order diagnostic testing of the fluid. COMPARISON: [facility], PARACENTESIS, 10/01/2025, 13:30. FINDINGS: Access site: Left lower quadrant Needle: One-Step centesis catheter with introducer needle. Fluid volume and description: 4.9 liter clear fluid Fluid sent for diagnostic testing: No Medications: 1% lidocaine for local anaesthesia. Complications: None. IMPRESSION: Successful ultrasound-guided therapeutic paracentesis. Dictated by: Hamilton Denny M.D. on 10/22/2025 at 15:55 Approved by: Hamilton Denny M.D. on 10/22/2025 at 15:55
[2025-10-22 13:40] VITALS: BP 109/75; PULSE 90; RESP 16; TEMP 36.6; O2SAT 96
[2025-10-22 14:05] VITALS: BP 112/67; PULSE 88; RESP 16; O2SAT 97
[2025-10-22 14:15] VITALS: BP 109/73; PULSE 80; RESP 16; O2SAT 98
[2025-10-22 14:30] VITALS: BP 95/63; PULSE 85; RESP 16; O2SAT 98
[2025-10-22 14:35] VITALS: BP 103/65; PULSE 87; RESP 16; O2SAT 98
== END 2025-10-22 14:43 | disposition home or self-care (01) ==
LOC: US 13:06
PROVIDERS: PCP Family Medicine; Visit Provider Radiology Diagnostic Radiology
DX: R18.8 Other ascites (principal); R97.1 Elevated cancer antigen 125 [CA 125]
CPT/HCPCS: 49083

== ENCOUNTER → 2025-10-29 11:57 | Outpatient (CLI) | payer OTHER, SELFPAY ==
[2025-08-04 14:04] VITALS: BMI 22.2
--- NOTE | 2025-10-29 | DI.US.S_ITS ---
PROCEDURE: US PARACENTESIS W/ALBUMIN INDICATIONS: ASCITIES TECHNIQUE: The indications, alternatives, benefits, risks, and complications of the procedure were explained to the patient. Written informed consent was obtained and placed in the chart. The abdomen and pelvis were examined sonographically, and an appropriate site was chosen for paracentesis. The skin was prepared and draped in the usual sterile fashion, and 1% lidocaine was infiltrated from the skin down through the peritoneal surface. A 19-gauge catheter-covered needle was then introduced into the peritoneal space, the catheter was advanced and the needle was withdrawn, and thereafter peritoneal fluid was withdrawn. The catheter was then removed and a dressing was applied. The fluid was discarded if the clinician did not order diagnostic testing of the fluid. COMPARISON: None. FINDINGS: Access site: Left lower quadrant Needle: One-Step centesis catheter with introducer needle. Fluid volume and description: 6875 mL, clear Fluid sent for diagnostic testing: No Medications: 1% lidocaine for local anaesthesia. Complications: None. IMPRESSION: Successful ultrasound-guided paracentesis. Dictated by: Hamilton Denny M.D. on 10/29/2025 at 15:07 Approved by: Hamilton Denny M.D. on 10/29/2025 at 15:08
[2025-10-29 12:38] VITALS: BP 105/77; PULSE 85; RESP 16; O2SAT 99
[2025-10-29 13:00] VITALS: BP 106/68; PULSE 81; RESP 17; O2SAT 96
[2025-10-29 13:45] VITALS: BP 107/67; PULSE 82; RESP 17; O2SAT 96
[2025-10-29] MEDS: ALBUMIN HUMAN 50 GM/200 ML VIAL IV (13:45)
[2025-10-29 15:02] VITALS: BP 107/67; PULSE 82; RESP 14; O2SAT 96
[2025-10-29 15:20] VITALS: BP 100/67; PULSE 84; RESP 16; O2SAT 6
== END ==
LOC: US 11:57
PROVIDERS: PCP Family Medicine; Referring Provider Radiology Diagnostic Radiology; Visit Provider Radiology Diagnostic Radiology
DX: R18.8 Other ascites (principal); R97.1 Elevated cancer antigen 125 [CA 125]
CPT/HCPCS: 49083; 96365; 96366; P9041